=== PATIENT | female | born 1955 | race Caucasian/White ===

== ENCOUNTER → 2019-02-05 | Day surgery (SDC) | payer MEDICARE ==
[2019-01-30 14:20] LABS: BASOPHILS % 0.5 % (0.0-1.0); EOSINOPHILS # (AUTO) 0.2 (0.0-0.4); EOSINOPHILS % 2.1 % (0.0-6.0); HEMATOCRIT 35.5 % (34.2-44.1); HEMOGLOBIN 10.9 g/dL (12.0-16.0); LYMPHOCYTES # (AUTO) 2.4 (1.0-3.2); MEAN CORPUSCULAR HGB CONC 30.7 g/dL (31-35); MEAN CORPUSCULAR VOLUME 84.5 fL (81-99); MONOCYTES # (AUTO) 0.7 (0.2-0.8); MONOCYTES % 7.6 % (4.4-11.3); NEUTROPHILS # (AUTO) 5.3 (2.1-6.9); NEUTROPHILS % 61.2 % (38.7-80.0); PLATELET COUNT 283 x10e3/uL (140-360); RED CELL DISTRIBUTION WIDTH 14.5 % (11.7-14.4)
[~2019-02-05] MED LIST: AMIODARONE HCL200 MG PO; APPLE CIDER VI600 MG PO; ASPIR 8181 MG PO; ATORVASTATIN CA20 MG PO; BUPROPION HCL100 MG PO; BUSPIRONE HCL15 MG PO; CALCIUM PO; CITALOPRAM HBR20 MG PO; CLOPIDOGREL75 MG PO; ELIQUIS PO; FUROSEMIDE40 MG PO; HUMALOG100 UNIT/1 SQ; LEVEMIR100 UNIT/1 SQ; LIDOCAINE HCL 2% LOCAL INJ 5 ML SDV VIAL INJ ONE; LOSARTAN POTASS25 MG PO; METFORMIN HCL500 MG PO; METOPROLOL SUCC25 MG PO; MIDAZOLAM HCL 2 MG/2 ML VIAL ONE; OMEPRAZOLE40 MG PO; ONDANSETRON PO; POTASSIUM PO; PROPOFOL IV EMULSION 10 MG/ML 50 ML VIAL ONE; RANITIDINE HCL150 M1 PEG; ROPINIROLE HCL1 MG PO; TIZANIDINE HCL4 M1 PO; TRAZODONE HCL50 MG PO; TYLENOL ARTHRITIS PO; TYLENOL PM PO; ULTRAM50 MG PO; VITAMIN C500 M1; VITAMIN D35000 UNIT PO
--- OUTSIDE RECORDS SUMMARY | 2019-02-05 06:03 | XMS REPORT | Summary of Care ---
Author Author [facility] Organization [facility] Address Unknown Phone Unavailable Encounter SARY Kim(LEROY) [id number] Date(s): 12/07/14 - 12/12/14 [facility] [address] [place] [address]- Discharge Disposition: Home Attending Physician: Morgan Cunningham MD Admitting Physician: Morgan Cunningham MD Vital Signs 1 2 3 Most recent to oldest [Reference Range]: 160.02 cm (12/07/14 12:20 PM) 162.56 cm (12/07/14 12:19 PM) 161.29 cm (12/07/14 8:53 AM) Height 1 2 3 Most recent to oldest [Reference Range]: 115.009 kg (12/12/14 5:00 AM) 118.1 kg (12/11/14 12:00 AM) 121 kg (12/10/14 2:44 AM) Current Weight 1 2 3 Most recent to oldest [Reference Range]: 97.6 DegF (12/12/14 7:49 AM) 98.1 DegF (12/12/14 4:00 AM) 98.5 DegF (12/12/14 12:00 AM) Temperature Oral [96.4-99.1 DegF] 1 2 3 Most recent to oldest [Reference Range]: 101/71 mmHg (12/12/14 7:49 AM) 99/63 mmHg (12/12/14 4:00 AM) 113/77 mmHg (12/12/14 12:00 AM) Blood Pressure [90-140/60-90 mmHg] 1 2 3 Most recent to oldest [Reference Range]: 20 BRMIN (12/12/14 7:49 AM) 18 BRMIN (12/12/14 4:00 AM) 18 BRMIN (12/12/14 12:00 AM) Respiratory Rate [14-20 BRMIN] 1 2 3 Most recent to oldest [Reference Range]: 86 bpm (12/12/14 7:49 AM) 68 bpm (12/12/14 4:00 AM) 57 bpm *LOW* (12/12/14 12:00 AM) Peripheral Pulse Rate [60-100 bpm] 1 2 3 Most recent to oldest [Reference Range]: 112.3 kg (12/07/14 12:20 PM) 114.8 kg (12/07/14 12:19 PM) 120.455 kg (12/07/14 8:53 AM) Weight 1 2 3 Most recent to oldest [Reference Range]: 43.86 m2 (12/07/14 12:20 PM) 43.44 m2 (12/07/14 12:19 PM) 46.3 m2 (12/07/14 8:53 AM) Body Mass Index Problem List Condition Effective Dates Status Health Status Informant Anxiety(Confirmed) Active Depression(Confirmed Resolved ) Diabetes mellitus Resolved type 2 in obese(Confirmed) Heart Resolved attack(Confirmed) Hepatitis Active C(Confirmed) Hypercholesteremia(C Active onfirmed) Hypertension(Confirm Active ed) Allergies, Adverse Reactions, Alerts Substance Reaction Severity Status Food Lactose Intolerance Active (Restricts Milk/Milk Products) Zestril Active Medications acetaminophen 650 mg, 2 tab, Route: PO, Drug form: TAB, Q4H, Dosing Weight 120.455, kg, PRN Pa in 1-3/Temp > 100.4 F, Start date: 12/07/14 12:16:00, Duration: 30 day, Stop date: 01/06/15 12:15:00 Notes: Do not exceed 4 gm/day. (Same as: Tylenol) Start Date: 12/07/14 Stop Date: 12/12/14 Status: Discontinued AMIODarone 200 mg, 1 tab, Route: PO, Drug form: TAB, TID-Meals, Dosing Weight 112.3, kg, St art date: 12/10/14 8:00:00, Duration: 30 day, Stop date: 01/08/15 17:00:00 Notes: (Same as: Cordarone) Start Date: 12/10/14 Stop Date: 12/12/14 Status: Discontinued AMIODarone 200 mg, 1 tab, Route: PO, Drug form: TAB, BID-Meals, Dosing Weight 112.3, kg, St art date: 12/12/14 8:00:00, Duration: 30 day, Stop date: 01/10/15 17:00:00 Notes: (Same as: Cordarone) Start Date: 12/12/14 Stop Date: 12/12/14 Status: Discontinued AMIODarone 200 mg, 1 tab, Route: PO, Drug form: TAB, BID, Dosing Weight 112.3, kg, Start da te: 12/09/14 17:00:00, Duration: 30 day, Stop date: 01/08/15 9:00:00 Notes: (Same as: Cordarone) Start Date: 12/09/14 Stop Date: 12/10/14 Status: Discontinued AMIODarone 200 mg oral tablet 200 mg=1 tab, PO, BID-Meals, # 60 tab, 0 Refill(s) Start Date: 12/12/14 Status: Ordered apixaban 5 mg oral tablet 5 mg=1 tab, PO, Q12H, # 60 tab, 0 Refill(s) Start Date: 12/12/14 Status: Ordered aspirin 81 mg, 1 tab, Route: PO, Drug form: ECTAB, Daily, Dosing Weight 112.3, kg, Start date: 12/08/14 9:00:00, Duration: 30 day, Stop date: 01/06/15 9:00:00 Notes: Do not crush or chew.(Same As: Ecotrin) Start Date: 12/08/14 Stop Date: 12/09/14 Status: Discontinued aspirin 325 mg, 1 tab, Route: PO, Drug form: TAB, ONCE, Dosing Weight 120.455, kg, Prior ity: STAT, Start date: 12/07/14 8:59:00, Stop date: 12/07/14 8:59:00 Notes: Take with food. Start Date: 12/07/14 Stop Date: 12/07/14 Status: Completed aspirin 81 mg tablet, enteric coated 81 mg=1 tab, PO, Daily, # 100 tab, 0 Refill(s) Start Date: 12/12/14 Status: Ordered aspirin 81 mg tablet, enteric coated 81 mg, 1 tab, Route: PO, Drug form: ECTAB, Daily, Dosing Weight 112.3, kg, Start date: 12/10/14 9:00:00, Duration: 30 day, Stop date: 01/08/15 9:00:00 Notes: Do not crush or chew.(Same As: Ecotrin) Start Date: 12/10/14 Stop Date: 12/12/14 Status: Discontinued cloNIDine 0.1 mg oral tablet 0.1 mg, 1 tab, Route: PO, Drug form: TAB, BID, Dosing Weight 112.3, kg, Start da te: 12/07/14 17:00:00, Duration: 30 day, Stop date: 01/06/15 9:00:00 Notes: (Same As: Catapres) Start Date: 12/07/14 Stop Date: 12/12/14 Status: Discontinued cloNIDine 0.1 mg oral tablet 0.1 mg=1 tab, PO, BID, # 90 tab, 3 Refill(s) Start Date: 12/07/14 Status: Ordered clopidogrel 600 mg, 2 tab, Route: PO, Drug form: TAB, ONCE, Dosing Weight 112.3, kg, Priorit y: NOW, Start date: 12/09/14 15:15:00, Stop date: 12/09/14 15:15:00 Notes: ( Same as: Plavix) Start Date: 12/09/14 Stop Date: 12/09/14 Status: Completed clopidogrel 75 mg, 1 tab, Route: PO, Drug form: TAB, Daily, Dosing Weight 112.3, kg, Start d ate: 12/10/14 9:00:00, Duration: 30 day, Stop date: 01/07/15 21:00:00 Notes: (Same As: Plavix) Start Date: 12/10/14 Stop Date: 12/12/14 Status: Discontinued clopidogrel 75 mg oral tablet 75 mg=1 tab, PO, Daily, # 30 tab, 0 Refill(s) Start Date: 12/12/14 Status: Ordered Coreg 12.5 mg, 1 tab, Route: PO, Drug form: TAB, BID, Dosing Weight 112.3, kg, Start d ate: 12/07/14 17:00:00, Duration: 30 day, Stop date: 01/06/15 9:00:00 Notes: Give with food. (Same As: Coreg) Start Date: 12/07/14 Stop Date: 12/12/14 Status: Discontinued Coreg 12.5 mg oral tablet 12.5 mg=1 tab, PO, BID, # 60 tab, 0 Refill(s) Start Date: 12/07/14 Status: Ordered Dextrose 50% Syringe 12.5 gm, 25 mL, Route: IVP, Drug Form: INJ, Dosing Weight 112.3, kg, PRN, PRN Bl ood Glucose Results, Start date: 12/07/14 16:18:00, Duration: 30 day, Stop date: 01/06/15 16:17:00 Start Date: 12/07/14 Stop Date: 12/12/14 Status: Discontinued Dextrose 50% Syringe 25 gm, 50 mL, Route: IVP, Drug Form: INJ, Dosing Weight 112.3, kg, PRN, PRN Bloo d Glucose Results, Start date: 12/07/14 16:18:00, Duration: 30 day, Stop date: 0 01/06/15 16:17:00 Start Date: 12/07/14 Stop Date: 12/12/14 Status: Discontinued digoxin 0.25 mg, 1 mL, Route: IVP, Drug form: INJ, Q6H, Dosing Weight 112.3, kg, start t his load 6 hours after initial bolus of 500mcg is given, Start date: 12/11/14 14 :00:00, Duration: 2 doses or times, Stop date: 12/11/14 20:00:00 Notes: (Same as: Lanoxin) Start Date: 12/11/14 Stop Date: 12/11/14 Status: Completed digoxin 500 microgram, 2 mL, Route: IVP, Drug form: INJ, ONCE, Dosing Weight 112.3, kg, Start date: 12/11/14 7:47:00, Stop date: 12/11/14 7:47:00 Notes: (Same as: Lanoxin) Start Date: 12/11/14 Stop Date: 12/11/14 Status: Completed docusate 100 mg, 1 cap, Route: PO, Drug form: CAP, Daily, Dosing Weight 112.3, kg, Start date: 12/10/14 11:56:00, Duration: 30 day, Stop date: 01/09/15 9:00:00 Notes: (Same as: Colace) (Do Not Crush) Start Date: 12/10/14 Stop Date: 12/12/14 Status: Discontinued Eliquis 5 mg, 1 tab, Route: PO, Drug form: TAB, Q12H, Dosing Weight 112.3, kg, Start loly e: 12/10/14 9:00:00, Duration: 30 day, Stop date: 01/08/15 21:00:00 Notes: Same as: Eliquis Start Date: 12/10/14 Stop Date: 12/12/14 Status: Discontinued enoxaparin 40 mg, 0.4 mL, Route: SUB-Q, Drug form: INJ, Q12H, Dosing Weight 112.3, kg, Cons ider for obese patients, Start date: 12/07/14 21:00:00, Duration: 30 day, Stop d ate: 01/06/15 9:00:00 Notes: (Same as: Lovenox) Start Date: 12/07/14 Stop Date: 12/09/14 Status: Discontinued estradiol-norethindrone 1 mg-0.5 mg oral tablet 1 tab, PO, Daily, # 28 tab, 0 Refill(s) Start Date: 12/07/14 Status: Ordered ferrous sulfate 325 mg, 1 tab, Route: PO, Drug form: TAB, TID-Meals, Dosing Weight 112.3, kg, St art date: 12/07/14 17:00:00, Duration: 30 day, Stop date: 01/06/15 12:00:00 Notes: Give with food.iron elemental [id number] as ferrous sulfateDose=___mg meghan mental iron Start Date: 12/07/14 Stop Date: 12/12/14 Status: Discontinued ferrous sulfate 325 mg oral enteric coated tablet 325 mg=1 tab, PO, TID, # 30 tab, 0 Refill(s) Start Date: 12/07/14 Status: Ordered folic acid 1 mg, 1 tab, Route: PO, Drug form: TAB, Daily, Dosing Weight 112.3, kg, Start da te: 12/08/14 9:00:00, Duration: 30 day, Stop date: 01/06/15 9:00:00 Notes: (Same as: Folvite) Start Date: 12/08/14 Stop Date: 12/12/14 Status: Discontinued folic acid 1 mg oral tablet 1 mg=1 tab, PO, Daily, # 30 tab, 0 Refill(s) Start Date: 12/07/14 Status: Ordered furosemide 60 mg, 6 mL, Route: IV, Drug form: INJ, ONCE, Dosing Weight 120.455, kg, Priorit y: STAT, Start date: 12/07/14 9:22:00, Stop date: 12/07/14 9:22:00 Notes: (Same as: Lasix) MEDICATION WASTE Product Size: 40 mgProduct Was cami: ___ mg Start Date: 12/07/14 Stop Date: 12/07/14 Status: Completed glucagon 1 mg, Route: IM, Drug form: PDR/INJ, PRN, Dosing Weight 112.3, kg, PRN Blood Glu cose Results, Start date: 12/07/14 16:18:00, Duration: 30 day, Stop date: 16:17:00 Start Date: 12/07/14 Stop Date: 12/12/14 Status: Discontinued Heparin - one time bolus for ACS 4,000 unit, 4 mL, Route: IV, Drug form: INJ, ONCE, Dosing Weight 112.3, kg, Star t date: 12/09/14 8:32:00, Stop date: 12/09/14 8:32:00 Start Date: 12/09/14 Stop Date: 12/09/14 Status: Completed heparin additive 25,000 unit [14 unit/kg/hr] + Premix Diluent Dextrose 5% 500 mL 500 mL, Rate: 22.23 ml/hr, Infuse over: 22.5 hr, Route: IV, Dosing Weight 79.4 k g, Total Volume: 500 mL, Start date: 12/09/14 7:50:00, Duration: 30 day, Stop da te: 01/08/15 7:49:00 Start Date: 12/09/14 Stop Date: 12/09/14 Status: Discontinued insulin aspart 3 unit, 0.03 mL, Route: SUB-Q, Drug form: SOLN, TID-Before Meals, Dosing Weight 112.3, kg, PRN Blood Glucose Results, Start date: 12/07/14 16:18:00, Duration: 3 0 day, Stop date: 01/06/15 16:17:00 Notes: Roll in palms of hands gently; Do not shake vigorously. (Same as: NovoLO G)"single patient use only" Stable for 28 days at room temperature.Expires in _ ____ days from Date Start Date: 12/07/14 Stop Date: 12/12/14 Status: Discontinued insulin aspart 4 unit, 0.04 mL, Route: SUB-Q, Drug form: SOLN, TID-Before Meals, Dosing Weight 112.3, kg, PRN Blood Glucose Results, Start date: 12/07/14 16:18:00, Duration: 3 0 day, Stop date: 01/06/15 16:17:00 Notes: Roll in palms of hands gently; Do not shake vigorously. (Same as: NovoLO G)"single patient use only" Stable for 28 days at room temperature.Expires in _ ____ days from Date Start Date: 12/07/14 Stop Date: 12/12/14 Status: Discontinued insulin aspart 5 unit, 0.05 mL, Route: SUB-Q, Drug form: SOLN, TID-Before Meals, Dosing Weight 112.3, kg, PRN Blood Glucose Results, Start date: 12/07/14 16:18:00, Duration: 3 0 day, Stop date: 01/06/15 16:17:00 Notes: Roll in palms of hands gently; Do not shake vigorously. (Same as: NovoLO G)"single patient use only" Stable for 28 days at room temperature.Expires in _ ____ days from Date Start Date: 12/07/14 Stop Date: 12/12/14 Status: Discontinued insulin aspart 1 unit, 0.01 mL, Route: SUB-Q, Drug form: SOLN, TID-Before Meals, Dosing Weight 112.3, kg, PRN Blood Glucose Results, Start date: 12/07/14 16:18:00, Duration: 3 0 day, Stop date: 01/06/15 16:17:00 Notes: Roll in palms of hands gently; Do not shake vigorously. (Same as: NovoLO G)"single patient use only" Stable for 28 days at room temperature.Expires in _ ____ days from Date Start Date: 12/07/14 Stop Date: 12/12/14 Status: Discontinued insulin aspart 2 unit, 0.02 mL, Route: SUB-Q, Drug form: SOLN, TID-Before Meals, Dosing Weight 112.3, kg, PRN Blood Glucose Results, Start date: 12/07/14 16:18:00, Duration: 3 0 day, Stop date: 01/06/15 16:17:00 Notes: Roll in palms of hands gently; Do not shake vigorously. (Same as: NovoLO G)"single patient use only" Stable for 28 days at room temperature.Expires in _ ____ days from Date Start Date: 12/07/14 Stop Date: 12/12/14 Status: Discontinued insulin aspart 5 unit, 0.05 mL, Route: SUB-Q, Drug form: SOLN, Before Lunch, Dosing Weight 112. 3, kg, Start date: 12/11/14 7:50:00, Duration: 30 day, Stop date: 01/09/15 11:30 :00 Notes: Roll in palms of hands gently; Do not shake vigorously. (Same as: NovoLO G)"single patient use only" Stable for 28 days at room temperature.Expires in _ ____ days from Date Start Date: 12/11/14 Stop Date: 12/12/14 Status: Discontinued insulin aspart 5 unit, 0.05 mL, Route: SUB-Q, Drug form: SOLN, Before Dinner, Dosing Weight 112 .3, kg, Start date: 12/10/14 16:30:00, Duration: 30 day, Stop date: 01/08/15 16: 30:00 Notes: Roll in palms of hands gently; Do not shake vigorously. (Same as: NovoLO G)"single patient use only" Stable for 28 days at room temperature.Expires in _ ____ days from Date Start Date: 12/10/14 Stop Date: 12/12/14 Status: Discontinued insulin aspart 3 unit, 0.03 mL, Route: SUB-Q, Drug form: SOLN, Before Lunch, Dosing Weight 112. 3, kg, Start date: 12/10/14 11:30:00, Duration: 30 day, Stop date: 01/08/15 11:3 0:00 Notes: Roll in palms of hands gently; Do not shake vigorously. (Same as: NovoLO G)"single patient use only" Stable for 28 days at room temperature.Expires in _ ____ days from Date Start Date: 12/10/14 Stop Date: 12/11/14 Status: Discontinued irbesartan 300 mg, 2 tab, Route: PO, Drug form: TAB, Daily, Dosing Weight 112.3, kg, Start date: 12/08/14 9:00:00, Duration: 30 day, Stop date: 01/06/15 9:00:00 Notes: (Same as:Avapro) Start Date: 12/08/14 Stop Date: 12/12/14 Status: Discontinued irbesartan 300 mg oral tablet 300 mg=1 tab, PO, Daily, # 30 tab, 0 Refill(s) Start Date: 12/07/14 Status: Ordered isosorbide mononitrate 60 mg, 1 tab, Route: PO, Drug form: ERTAB, QAM, Dosing Weight 112.3, kg, Start d ate: 12/08/14 9:00:00, Duration: 30 day, Stop date: 01/06/15 9:00:00 Notes: (Same as:Imdur)"Do Not Crush" Take on empty stomach/ full glass of water . Do not crush Start Date: 12/08/14 Stop Date: 12/10/14 Status: Discontinued isosorbide mononitrate 60 mg oral tablet, extended release 60 mg=1 tab, PO, QAM, # 30 tab, 0 Refill(s) Start Date: 12/07/14 Status: Ordered Lasix 40 mg, 4 mL, Route: IVP, Drug form: INJ, BID, Dosing Weight 112.3, kg, Start loly e: 12/07/14 17:00:00, Duration: 30 day, Stop date: 01/06/15 9:00:00 Notes: (Same as: Lasix) MEDICATION WASTE Product Size: 40 mgProduct Was cami: ___ mg Start Date: 12/07/14 Stop Date: 12/12/14 Status: Discontinued Lasix 40 mg oral tablet 40 mg, 1 tab, Route: PO, Drug form: TAB, Daily, Dosing Weight 112.3, kg, Start d ate: 12/12/14 9:00:00, Duration: 30 day, Stop date: 01/10/15 9:00:00 Notes: (Same as: Lasix) May cause GI upset. Give with food or milk. Start Date: 12/12/14 Stop Date: 12/12/14 Status: Discontinued Lasix 40 mg oral tablet 40 mg=1 tab, PO, Daily, # 30 tab, 0 Refill(s) Start Date: 12/12/14 Status: Ordered Levemir 10 unit, 0.1 mL, Route: SUB-Q, Drug form: INJ, BID, Dosing Weight 112.3, kg, Sta rt date: 12/07/14 17:00:00, Duration: 30 day, Stop date: 01/06/15 9:00:00 Notes: Same as LevemirDo not hold insulin without contacting prescriber "single patient use only" Start Date: 12/07/14 Stop Date: 12/10/14 Status: Discontinued Levemir 14 unit, 0.14 mL, Route: SUB-Q, Drug form: INJ, BID, Dosing Weight 112.3, kg, St art date: 12/11/14 9:00:00, Duration: 30 day, Stop date: 01/09/15 17:00:00 Notes: Same as LevemirDo not hold insulin without contacting prescriber "single patient use only" Start Date: 12/11/14 Stop Date: 12/12/14 Status: Discontinued Levemir 12 unit, 0.12 mL, Route: SUB-Q, Drug form: INJ, BID, Dosing Weight 112.3, kg, St art date: 12/10/14 17:00:00, Duration: 30 day, Stop date: 01/09/15 9:00:00 Notes: Same as LevemirDo not hold insulin without contacting prescriber "single patient use only" Start Date: 12/10/14 Stop Date: 12/11/14 Status: Discontinued Levemir FlexPen 100 units/mL subcutaneous solution 26 unit, SUB-Q, BID, # 1 pen(s), 3 Refill(s) Start Date: 12/07/14 Status: Ordered magnesium sulfate 1 gm, 100 mL, Route: IVPB, Drug form: INJ, ONCE, Dosing Weight 112.3, kg, Start date: 12/08/14 10:45:00, Stop date: 12/08/14 10:45:00 Start Date: 12/08/14 Stop Date: 12/08/14 Status: Completed metFORMIN 1000 mg oral tablet 1,000 mg=1 tab, PO, QAM, # 30 tab, 0 Refill(s) Start Date: 12/07/14 Status: Ordered metFORMIN 1000 mg oral tablet 1,500 mg=1.5 tab, PO, Bedtime, # 30 tab, 0 Refill(s) Start Date: 12/07/14 Status: Ordered MiraLax 17 gm, 1 pkt, Route: PO, Drug form: PWDR, Daily, Dosing Weight 112.3, kg, Start date: 12/10/14 11:56:00, Duration: 30 day, Stop date: 01/09/15 9:00:00 Notes: Dissolve in 8 oz of water or juice.(Same as: Miralax) Start Date: 12/10/14 Stop Date: 12/12/14 Status: Discontinued morphine Sulfate 2 mg, 1 mL, Route: IVP, Drug form: INJ, ONCE, Dosing Weight 112.3, kg, Start loly e: 12/09/14 7:17:00, Stop date: 12/09/14 7:17:00 Notes: (Same as:MORPhine Sulfate) Start Date: 12/09/14 Stop Date: 12/09/14 Status: Completed nitroglycerin 2% ointment 0.5 inch, Route: TOP, Drug Form: OINT, Dosing Weight 120.455, kg, ONCE, STAT, St art date: 12/07/14 10:30:00, Stop date: 12/07/14 10:30:00 Notes: 1 gram is approximately 1 inch of nitroglycerin ointment (20 mg NTG pe r gram) (Same as:Nitro-Bid) Start Date: 12/07/14 Stop Date: 12/07/14 Status: Completed nitroglycerin SL Tab 0.4 mg, Route: SL, Drug form: TAB, Q5Min, Dosing Weight 112.3, kg, PRN Chest Saleem n, Start date: 12/09/14 15:15:00, Duration: 3 doses or times, Stop date: Limited # of times Start Date: 12/09/14 Stop Date: 12/09/14 Status: Discontinued Nitrostat 0.4 mg sublingual tablet 0.4 mg=1 tab, SL, Q5Min, PRN Chest Pain, # 100 tab, 0 Refill(s) Start Date: 12/07/14 Status: Ordered Nitrostat 0.4 mg sublingual tablet 0.4 mg, 1 tab, Route: SL, Drug form: TAB, Q5Min, Dosing Weight 112.3, kg, PRN as needed for chest pain, Start date: 12/07/14 16:12:00, Duration: 30 day, Stop da te: 01/06/15 16:11:00 Notes: (Same as:Nitroquick, Nitrostat)"Do Not Crush" Sublingual tablet Start Date: 12/07/14 Stop Date: 12/12/14 Status: Discontinued [place] 10/325 oral tablet 1 tab, Route: PO, Drug Form: TAB, Dosing Weight 112.3, kg, Q4H, PRN Pain Score 4 -6, Start date: 12/07/14 16:46:00, Duration: 30 day, Stop date: 01/06/15 16:45:0 0 Notes: Do not exceed 4gm/day of acetaminophen. (Same as: [place] 325/10) Start Date: 12/07/14 Stop Date: 12/12/14 Status: Discontinued [place] 5/325 oral tablet 1 tab, PO, TID, PRN Pain, # 60 tab, 0 Refill(s) Start Date: 12/07/14 Stop Date: 12/22/14 Status: Ordered ondansetron 4 mg, 2 mL, Route: IVP, Drug form: INJ, Q6H, Dosing Weight 120.455, kg, PRN Naus ea & Vomiting, Start date: 12/07/14 12:16:00, Duration: 30 day, Stop date: 01/06/15 12:15:00 Notes: (Same as: Zofran) MEDICATION WASTE Product Size: 4 mgProduct Was cami: ___ mg Start Date: 12/07/14 Stop Date: 12/07/14 Status: Discontinued Plavix 75 mg, Route: PO, Drug form: TAB, Daily, Dosing Weight 112.3, kg, Start date: 9:00:00, Duration: 30 day, Stop date: 01/08/15 9:00:00 Start Date: 12/10/14 Stop Date: 12/09/14 Status: Canceled pravastatin 80 mg, 4 tab, Route: PO, Drug form: TAB, Bedtime, Dosing Weight 112.3, kg, Start date: 12/07/14 21:00:00, Duration: 30 day, Stop date: 01/05/15 21:00:00 Notes: (Same as: Pravachol) Start Date: 12/07/14 Stop Date: 12/12/14 Status: Discontinued pravastatin 80 mg oral tablet 80 mg=1 tab, PO, Bedtime, # 30 tab, 0 Refill(s) Start Date: 12/07/14 Status: Ordered Requip 1 mg, 1 tab, Route: PO, Drug form: TAB, Bedtime, Dosing Weight 112.3, kg, Start date: 12/07/14 17:00:00, Stop date: 01/05/15 21:00:00 Notes: (Same as: Requip) Start Date: 12/07/14 Stop Date: 12/12/14 Status: Discontinued Requip 1 mg oral tablet 1 mg=1 tab, PO, BID, # 30 tab, 1 Refill(s) Start Date: 12/07/14 Stop Date: 01/06/15 Status: Ordered Saline Flush 0.9% 10 mL, Route: IVP, Drug Form: INJ, Dosing Weight 120.455, kg, PRN, PRN Line Flus h, Start date: 12/07/14 8:59:00, Duration: 30 day, Stop date: 01/06/15 8:58:00 Notes: preservative free. Start Date: 12/07/14 Stop Date: 12/12/14 Status: Discontinued Sodium Chloride 0.9% IV 500 mL 500 mL, Rate: 50 ml/hr, Infuse over: 10 hr, Route: IV, Dosing Weight 112.3 kg, T otal Volume: 500, Start date: 12/09/14 15:15:00, Duration: 1 doses or times, Sto p date: 12/10/14 1:14:00 Start Date: 12/09/14 Stop Date: 12/10/14 Status: Completed Soma 350 mg oral tablet 350 mg=1 tab, PO, Bedtime, # 21 tab, 0 Refill(s) Start Date: 12/07/14 Stop Date: 12/14/14 Status: Ordered Tradjenta 5 mg oral tablet 5 mg=1 tab, PO, Daily, # 90 tab, 1 Refill(s) Start Date: 12/07/14 Status: Ordered trazodone 300 mg, 2 tab, Route: PO, Drug form: TAB, Bedtime, Dosing Weight 112.3, kg, Star t date: 12/07/14 21:00:00, Duration: 30 day, Stop date: 01/05/15 21:00:00 Notes: (Same As: Desyrel) Start Date: 12/07/14 Stop Date: 12/12/14 Status: Discontinued trazodone 150 mg oral tablet 300 mg=2 tab, PO, Bedtime, # 90 tab, 0 Refill(s) Start Date: 12/07/14 Status: Ordered Tylenol 650 mg, 2 tab, Route: PO, Drug form: TAB, Q6H, Dosing Weight 112.3, kg, PRN For Temp > 100.4 F, Start date: 12/07/14 16:45:00, Duration: 30 day, Stop date: 01/06/15 16:44:00 Notes: Do not exceed 4 gm/day. (Same as: Tylenol) Start Date: 12/07/14 Stop Date: 12/12/14 Status: Discontinued verapamil 360 mg, 2 tab, Route: PO, Drug form: ERTAB, QAM, Dosing Weight 112.3, kg, Start date: 12/08/14 9:00:00, Duration: 30 day, Stop date: 01/06/15 9:00:00 Notes: Do not crush or chew.(Same As: Calan SR, Isoptin SR) "Avoid grapefruit a nd grapefruit juice" Start Date: 12/08/14 Stop Date: 12/09/14 Status: Discontinued verapamil 180 mg oral tablet, extended release 360 mg=2 tab, PO, QAM, # 30 tab, 0 Refill(s) Start Date: 12/07/14 Status: Ordered Victoza 18 mg/3 mL subcutaneous injection 1.2 mg, SUB-Q, Daily, # 3 ea, 3 Refill(s) Start Date: 12/07/14 Status: Ordered Wellbutrin XL 300 mg, 2 tab, Route: PO, Drug form: ERTAB, Daily, Dosing Weight 112.3, kg, Star t date: 12/08/14 9:00:00, Duration: 30 day, Stop date: 01/06/15 9:00:00 Notes: (Same as: Wellbutrin XL)"Do Not Crush" Start Date: 12/08/14 Stop Date: 12/12/14 Status: Discontinued Wellbutrin XL 300 mg/24 hours oral tablet, extended release 300 mg=1 tab, PO, Daily, # 30 tab, 0 Refill(s) Start Date: 12/07/14 Status: Ordered Xanax 0.25 mg oral tablet 0.25 mg, 1 tab, Route: PO, Drug form: TAB, Bedtime, Dosing Weight 112.3, kg, PRN as needed for anxiety, Start date: 12/07/14 16:10:00, Duration: 30 day, Stop da te: 01/06/15 16:09:00 Notes: With food or milk(Same as: Xanax) Start Date: 12/07/14 Stop Date: 12/12/14 Status: Discontinued Xanax 0.25 mg oral tablet 0.25 mg=1 tab, PO, Bedtime, PRN Anxiety Start Date: 12/07/14 Status: Ordered Zanaflex 4 mg, 1 tab, Route: PO, Drug form: TAB, Bedtime, Dosing Weight 112.3, kg, Start date: 12/07/14 21:00:00, Duration: 30 day, Stop date: 01/05/15 21:00:00 Notes: (Same As: Zanaflex) Start Date: 12/07/14 Stop Date: 12/12/14 Status: Discontinued Zanaflex 4 mg oral tablet 4 mg=1 tab, PO, Bedtime, # 540 tab, 0 Refill(s) Start Date: 12/07/14 Status: Ordered Zofran 4 mg, 2 mL, Route: IV, Drug form: INJ, Q8H, Dosing Weight 112.3, kg, PRN Nausea, Start date: 12/07/14 16:45:00, Duration: 30 day, Stop date: 01/06/15 16:44:00 Notes: (Same as: Zofran) MEDICATION WASTE Product Size: 4 mgProduct Was cami: ___ mg Start Date: 12/07/14 Stop Date: 12/12/14 Status: Discontinued Results ELECTROLYTES 1 2 3 Most recent to oldest [Reference Range]: 136 mEq/L (12/12/14 6:00 AM) 139 mEq/L (12/11/14 7:17 AM) 140 mEq/L (12/10/14 6:15 AM) Sodium Lvl [135-145 mEq/L] 4.0 mEq/L (12/12/14 6:00 AM) 4.4 mEq/L (12/11/14 7:17 AM) 4.9 mEq/L (12/10/14 6:15 AM) Potassium Lvl [3.5-5.1 mEq/L] 101 mEq/L (12/12/14 6:00 AM) 102 mEq/L (12/11/14 7:17 AM) 105 mEq/L (12/10/14 6:15 AM) Chloride Lvl [95-109 mEq/L] 24 mEq/L (12/12/14 6:00 AM) 29 mEq/L (12/11/14 7:17 AM) 28 mEq/L (12/10/14 6:15 AM) CO2 [24-32 mEq/L] 15.0 mEq/L (12/12/14 6:00 AM) 12.4 mEq/L (12/11/14 7:17 AM) 11.9 mEq/L (12/10/14 6:15 AM) AGAP [10.0-20.0 mEq/L] CHEM PANEL 1 2 3 Most recent to oldest [Reference Range]: 0.9 mg/dL (12/12/14 6:00 AM) 1.0 mg/dL (12/11/14 7:17 AM) 1.1 mg/dL (12/10/14 6:15 AM) Creatinine Lvl [0.5-1.4 mg/dL] 71 mL/min/1.73m2 1 *NA* (12/12/14 6:00 AM) 62 mL/min/1.73m2 2 *NA* (12/11/14 7:17 AM) 55 mL/min/1.73m2 3 *NA* (12/10/14 6:15 AM) eGFR 23 mg/dL *HI* (12/12/14 6:00 AM) 18 mg/dL (12/11/14 7:17 AM) 23 mg/dL *HI* (12/10/14 6:15 AM) BUN [7-22 mg/dL] 16 (12/07/14 9:04 AM) B/C Ratio [6-25] 159 mg/dL *HI* (12/12/14 6:00 AM) 175 mg/dL *HI* (12/11/14 7:17 AM) 160 mg/dL *HI* (12/10/14 6:15 AM) Glucose Lvl [70-99 mg/dL] 6.8 g/dL (12/07/14 9:04 AM) Total Protein [6.4-8.4 g/dL] 3.6 g/dL (12/07/14 9:04 AM) Albumin Lvl [3.5-5.0 g/dL] 3.2 g/dL (12/07/14 9:04 AM) Globulin [2.0-4.0 g/dL] 1.1 (12/07/14 9:04 AM) A/G Ratio [0.7-1.6] 8.2 mg/dL *LOW* (12/12/14 6:00 AM) 8.1 mg/dL *LOW* (12/11/14 7:17 AM) 8.0 mg/dL *LOW* (12/10/14 6:15 AM) Calcium Lvl [8.5-10.5 mg/dL] 1.9 mg/dL (12/11/14 7:17 AM) 1.9 mg/dL (12/10/14 6:15 AM) 1.9 mg/dL (12/09/14 4:50 AM) Magnesium Lvl [1.8-2.4 mg/dL] 22 unit/L (12/07/14 9:04 AM) ALT [0-65 unit/L] 17 unit/L (12/07/14 9:04 AM) AST [0-37 unit/L] 55 unit/L (12/07/14 9:04 AM) Alk Phos [39-136 unit/L] 0.3 mg/dL (12/07/14 9:04 AM) Bili Total [0.2-1.3 mg/dL] 105 unit/L (12/07/14 9:04 AM) Lipase Lvl [73-393 unit/L] 1Result Comment: The eGFR is calculated using the CKD-EPI formula. In most young, healthy individuals the eGFR will be >90 mL/min/1.73m2. The eGFR declines with age. An eGFR of 60-89 may be normal in some populations, particularly the elderly, for whom the CKD-EPI formula has not been extensively validated. Use of the eGFR is not recommended in the following populations: Individuals with unstable creatinine concentrations, including patients and those with serious co-morbid conditions. Patients with extremes in muscle mass or diet. The data above are obtained from the National Kidney Disease Education Program ( NKDEP) which additionally recommends that when the eGFR is used in patients with extremes of body mass index for purposes of drug dosing, the eGFR should be mul tiplied by the estimated BMI. 2Result Comment: The eGFR is calculated using the CKD-EPI formula. In most young, healthy individuals the eGFR will be >90 mL/min/1.73m2. The eGFR declines with age. An eGFR of 60-89 may be normal in some populations, particularly the elderly, for whom the CKD-EPI formula has not been extensively validated. Use of the eGFR is not recommended in the following populations: Individuals with unstable creatinine concentrations, including patients and those with serious co-morbid conditions. Patients with extremes in muscle mass or diet. The data above are obtained from the National Kidney Disease Education Program ( NKDEP) which additionally recommends that when the eGFR is used in patients with extremes of body mass index for purposes of drug dosing, the eGFR should be mul tiplied by the estimated BMI. 3Result Comment: The eGFR is calculated using the CKD-EPI formula. In most young, healthy individuals the eGFR will be >90 mL/min/1.73m2. The eGFR declines with age. An eGFR of 60-89 may be normal in some populations, particularly the elderly, for whom the CKD-EPI formula has not been extensively validated. Use of the eGFR is not recommended in the following populations: Individuals with unstable creatinine concentrations, including patients and those with serious co-morbid conditions. Patients with extremes in muscle mass or diet. The data above are obtained from the National Kidney Disease Education Program ( NKDEP) which additionally recommends that when the eGFR is used in patients with extremes of body mass index for purposes of drug dosing, the eGFR should be mul tiplied by the estimated BMI. CARDIAC ENZYMES 1 2 3 Most recent to oldest [Reference Range]: 52 unit/L (12/09/14 7:22 PM) 60 unit/L (12/09/14 1:35 PM) 53 unit/L (12/09/14 7:31 AM) Total CK [12-191 unit/L] 0.6 ng/mL (12/09/14 7:22 PM) 1.2 ng/mL (12/09/14 1:35 PM) 1.1 ng/mL (12/09/14 7:31 AM) CK MB [0.5-3.6 ng/mL] 1.2 (12/09/14 7:22 PM) 2.0 (12/09/14 1:35 PM) 2.1 (12/09/14 7:31 AM) CK MB Index [0.0-2.5] <0.02 ng/mL (12/09/14 7:22 PM) <0.02 ng/mL (12/09/14 1:35 PM) <0.02 ng/mL (12/09/14 7:31 AM) Troponin-I [0.00-0.40 ng/mL] 147 pg/mL *HI* (12/09/14 7:31 AM) 329 pg/mL *HI* (12/07/14 9:04 AM) BNP [<=100 pg/mL] LIPIDS 1 2 3 Most recent to oldest [Reference Range]: 2.50 *LOW* (12/08/14 8:10 AM) CHD Risk [3.90-5.80] 130 mg/dL (12/08/14 8:10 AM) Chol [<=199 mg/dL] 133 mg/dL (12/08/14 8:10 AM) Trig [<=149 mg/dL] 52 mg/dL *LOW* (12/08/14 8:10 AM) HDL [>=61 mg/dL] 51 mg/dL (12/08/14 8:10 AM) LDL (Calculated) [<=99 mg/dL] 27 *NA* (12/08/14 8:10 AM) VLDL SPECIAL CHEMISTRY 1 2 3 Most recent to oldest [Reference Range]: 6.9 % *HI* (12/07/14 5:00 PM) Hgb A1C [<=5.6 %] HEMATOLOGY 1 2 3 Most recent to oldest [Reference Range]: 5.4 K/CMM (12/10/14 6:15 AM) 6.5 K/CMM (12/09/14 9:18 AM) 7.4 K/CMM (12/07/14 9:04 AM) WBC [3.7-10.4 K/CMM] 4.26 M/CMM (12/10/14 6:15 AM) 4.47 M/CMM (12/09/14 9:18 AM) 4.60 M/CMM (12/07/14 9:04 AM) RBC [4.20-5.40 M/CMM] 11.2 g/dL *LOW* (12/10/14 6:15 AM) 11.9 g/dL *LOW* (12/09/14 9:18 AM) 12.0 g/dL (12/07/14 9:04 AM) Hgb [12.0-16.0 g/dL] 34.7 % *LOW* (12/10/14 6:15 AM) 36.5 % (12/09/14 9:18 AM) 37.9 % (12/07/14 9:04 AM) Hct [36.0-48.0 %] 81.3 fL (12/10/14 6:15 AM) 81.7 fL (12/09/14 9:18 AM) 82.3 fL (12/07/14 9:04 AM) MCV [80.0-98.0 fL] 26.3 pg *LOW* (12/10/14 6:15 AM) 26.7 pg *LOW* (12/09/14 9:18 AM) 26.1 pg *LOW* (12/07/14 9:04 AM) MCH [27.0-31.0 pg] 32.3 g/dL (12/10/14:15 AM) 32.7 g/dL (12/09/14:18 AM) 31.7 g/dL *LOW* (12/07/14:04 AM) MCHC [32.0-36.0 g/dL] 14.1 % (12/10/14:15 AM) 13.9 % (12/09/14:18 AM) 14.4 % (12/07/14 9:04 AM) RDW [11.5-14.5 %] 215 K/CMM (12/10/14:15 AM) 238 K/CMM (12/09/1418 AM) 228 K/CMM (12/07/14 5:00 PM) Platelet [133-450 K/CMM] 9.0 fL (12/10/14:15 AM) 8.7 fL (12/09/14:18 AM) 9.2 fL (12/07/14:04 AM) MPV [7.4-10.4 fL] 62.3 % (12/10/14:15 AM) 59.9 % (12/09/1418 AM) 68.2 % (12/07/14:04 AM) Segs [45.0-75.0 %] 24.0 % (12/10/14:15 AM) 28.6 % (12/09/1418 AM) 21.9 % (12/07/14 9:04 AM) Lymphocytes [20.0-40.0 %] 10.6 % (12/10/14:15 AM) 9.4 % (12/09/14:18 AM) 7.7 % (12/07/14 9:04 AM) Monocytes [2.0-12.0 %] 2.5 % (12/10/14:15 AM) 1.7 % (12/09/14:18 AM) 1.8 % (12/07/14 9:04 AM) Eosinophils [0.0-4.0 %] 0.6 % (7/22/15 6:15 AM) 0.4 % (12/09/14 9:18 AM) 0.4 % (12/07/14 9:04 AM) Basophils [0.0-1.0 %] 3.4 K/CMM (12/10/14 6:15 AM) 3.9 K/CMM (12/09/14 9:18 AM) 5.1 K/CMM (12/07/14 9:04 AM) Segs-Bands # [1.5-8.1 K/CMM] 1.3 K/CMM (12/10/14 6:15 AM) 1.9 K/CMM (12/09/14 9:18 AM) 1.6 K/CMM (12/07/14 9:04 AM) Lymphocytes # [1.0-5.5 K/CMM] 0.6 K/CMM (12/10/14 6:15 AM) 0.6 K/CMM (12/09/14 9:18 AM) 0.6 K/CMM (12/07/14 9:04 AM) Monocytes # [0.0-0.8 K/CMM] 0.1 K/CMM (12/10/14 6:15 AM) 0.1 K/CMM (12/09/14 9:18 AM) 0.1 K/CMM (12/07/14 9:04 AM) Eosinophils # [0.0-0.5 K/CMM] 0.0 K/CMM (12/10/14 6:15 AM) 0.0 K/CMM (12/07/14 9:04 AM) Basophils # [0.0-0.2 K/CMM] 13.3 seconds (12/09/14 9:18 AM) 13.0 seconds (12/07/14 9:04 AM) PT [12.0-14.7 seconds] 1.01 (12/09/14 9:18 AM) 0.98 (12/07/14 9:04 AM) INR [0.85-1.17] 35.7 seconds (12/09/14 9:18 AM) 32.6 seconds (12/07/14 5:00 PM) 35.1 seconds (12/07/14 9:04 AM) PTT [22.9-35.8 seconds] Immunizations No data available for this section Procedures Procedure Date Related Diagnosis Body Site Gastric bypass Hiatus hernia repair Stent placement Tubal ligation Social History Social History Type Response Alcohol Never Smoking Status Never smoker; Exposure to Tobacco Smoke None; Cigarette Smoking Last 365 Days No; Reg Smoking Cessation Counseling No Assessment and Plan No data available for this section
--- OUTSIDE RECORDS SUMMARY | 2019-02-05 06:03 | XMS REPORT ---
Author Author Juan Villarreal eClinicalWorks Address Unknown Phone Unavailable Care Team Providers Care Chopper Operator Name Role Phone Juan Villarreal Unavailable Encounters Encounter Location Date medication interaction [facility] Jan 02, 2015 Re: interaction of currents meds w/Amiodorone [facility] Jan 02, 2015 Med refills [facility] Jan 05, 2015 Rx- Pen needles (Levemir Pen) [facility] [place] Jan 07, 2015 Test results [facility] Dec 26, 2014 Message [facility] Jan 05, 2015 Message [facility] Jan 07, 2015 Problems Problem Type Condition ICD-9 Code Onset Dates Condition Status Problem Benign hypertension 401.1 Active Problem Atrial fibrillation 427.31 Active Problem Coronary atherosclerosis of [place] vessel 414.01 Active Problem Anxiety disorder NOS 300.00 Active Problem Morbid obesity 278.01 Active Problem Chronic systolic heart failure 428.22 Active Problem Dyspnea 786.09 Active Medications Medication Code System Code Instructions Start Date End Date Status Dosage Stacy BELL 113975 5 mg orally 2 times a day Active 1 tab(s) Summary Purpose eClinicalWorks Submission
--- OUTSIDE RECORDS SUMMARY | 2019-02-05 06:03 | XMS REPORT ---
Author [facility] Address Unknown Phone Unavailable Care Team Providers Care It Quality Assurance Analyst Name Role Phone Unavailable Unavailable Problems This patient has no known problems. Allergies, Adverse Reactions, Alerts This patient has no known allergies or adverse reactions. Medications This patient has no known medications. Encounters Start Date/Time End Date/Time Encounter Type Admission Type Attending [facility] Care Department Encounter ID 2017-05-26 00:00:00 2017-05-26 00:00:00 Outpatient [facility] [id number] 2017-03-15 00:00:00 2017-03-15 00:00:00 Outpatient [facility] [id number] 2017-02-14 00:00:00 2017-02-14 00:00:00 Outpatient [facility] [id number] 2017-02-09 00:00:00 2017-02-09 00:00:00 Outpatient [facility] [id number] 2017-02-08 00:00:00 2017-02-08 00:00:00 Outpatient [facility] [id number] 2017-01-31 00:00:00 2017-01-31 00:00:00 Outpatient [facility] [id number] 2017-01-31 00:00:00 2017-01-31 00:00:00 Outpatient [facility] [id number] 2017-01-17 00:00:00 2017-01-17 00:00:00 Outpatient [facility] [id number] 2017-01-13 00:00:00 2017-01-13 00:00:00 Outpatient [facility] [id number] 2017-01-13 00:00:00 2017-01-13 00:00:00 Outpatient [facility] [id number] 2017-01-12 08:18:04 2017-01-12 08:18:04 Outpatient [facility] [id number] 2017-01-11 09:30:51 2017-01-11 09:30:51 Outpatient [facility] [id number] 2017-01-03 09:38:19 2017-01-03 09:38:19 Outpatient [facility] [id number] 2017-01-02 09:29:49 2017-01-02 09:29:49 Outpatient [facility] [id number] 2017-01-02 08:37:13 2017-01-02 08:37:13 Outpatient [facility] [id number] 2016-12-30 04:24:02 2016-12-30 04:24:02 Emergency [facility] [id number] 2016-12-29 14:57:00 2016-12-29 14:57:00 Outpatient [facility] [id number] 2016-12-19 09:55:22 2016-12-19 09:55:22 Outpatient [facility] [id number] 2016-12-19 08:39:32 2016-12-19 08:39:32 Outpatient [facility] [id number] 2016-12-16 00:00:00 2016-12-16 00:00:00 Outpatient [facility] [id number] 2016-12-14 08:35:27 2016-12-14 08:35:27 Outpatient [facility] [id number] 2016-12-14 07:53:29 2016-12-14 07:53:29 Outpatient [facility] [id number] 2016-12-14 00:00:00 2016-12-14 00:00:00 Outpatient [facility] [id number] 2016-12-08 09:37:02 2016-12-08 09:37:02 Outpatient [facility] [id number] 2016-12-06 09:40:30 2016-12-06 09:40:30 Outpatient [facility] [id number] 2016-12-06 08:57:24 2016-12-06 08:57:24 Outpatient [facility] [id number] 2016-10-31 00:00:00 2016-10-31 00:00:00 Outpatient [facility] [id number] 2016-10-31 00:00:00 2016-10-31 00:00:00 Outpatient [facility] [id number] 2016-10-28 00:00:00 2016-10-28 00:00:00 Outpatient [facility] [id number] 2016-10-27 09:43:21 2016-10-27 09:43:21 Outpatient [facility] [id number] 2016-10-27 00:00:00 2016-10-27 00:00:00 Outpatient [facility] [id number] 2016-10-25 00:00:00 2016-10-25 00:00:00 Outpatient [facility] [id number] 2016-10-20 13:39:24 2016-10-20 13:39:24 Outpatient [facility] [id number] 2016-10-06 10:11:56 2016-10-06 10:11:56 Outpatient [facility] [id number] 2016-10-06 08:37:19 2016-10-06 08:37:19 Outpatient [facility] [id number] 2016-10-06 08:00:23 2016-10-06 08:00:23 Outpatient [facility] [id number]
--- OUTSIDE RECORDS SUMMARY | 2019-02-05 06:03 | XMS REPORT ---
Author Author Admin, [place] Organization [facility] Address [address] [address] Phone Allergies, Adverse Reactions, Alerts Allergy Name Reaction Description Start Date Severity Status Provider ZESTRIL cough Mild Active Patricia Vickers DO Conditions or Problems Problem Name Problem Code Onset Date Status Entry Date Provider Comment Standard Description Annotate Cataract, bilateral 366.9 Active Patriciafranci Vickers DO Unspecified cataract Deconditioning 799.3 Active Patricia Kitcheney DO Debility, unspecified GERD 530.81 Active Patricia Kitcheney DO Esophageal reflux Joint pain 719.40 Active Patricia Alee DO Pain in joint, site unspecified Nausea with vomiting 787.01 Active Patricia Alee DO Nausea with vomiting ANXIETY DISORDER, UNSPECIFIED Active Marbella Trujillo EMPLOYEE RELATIONS SPECIALIST Anxiety state, unspecified DEPRESSIVE DISORDER, MAJOR, RECURRENT EPISODE, SEVERE Active Marbella Trujillo [facility] Major depressive disorder, recurrent episode, severe degree, without mention of psychotic behavior Atrial fibrillation 427.31 Active Patricia Vickers DO Atrial fibrillation Congestive heart failure, chronic 428.0 Active Patricia Vickers DO Congestive heart failure, unspecified Coronary artery disease, S/P PTCA/stent 414.00 Active Patricia Vickers DO Coronary atherosclerosis of unspecified type of vessel, nez perce or graft Diabetes mellitus type II 250.00 Active Patricia Vickers DO Diabetes mellitus without mention of complication, type II or unspecified type, not stated as uncontrolled Encounter for immunization V05.9 Active Patriciafranci Vickers Need for prophylactic vaccination and inoculation against unspecified single disease Establish care or get acquainted visit V68.89 Active Patricia Vickers DO Encounters for other specified administrative purpose Hyperlipidemia 272.4 Active Patricia Kitcheney DO Other and unspecified hyperlipidemia Hypertension 401.1 Active Patricia Kitcheney DO Benign essential hypertension Leg cramps, nocturnal 729.82 Active Patricia Kitcheney DO Cramp of limb MORBID OBESITY Active Patricia Kitcheney Morbid obesity Restless leg syndrome 333.94 Active Patricia Kitcheney DO Restless legs syndrome (RLS) Medication List Medication Instructions Start Date Stop Date Generic Name NDC Status Provider Patient Instruction ACCU-CHEK MACY PLUS IN VITRO STRIP use as directed to check BS Three Times a Day GLUCOSE BLOOD 22967136719 Active Patricia Alee Active ACCU-CHEK SOFTCLIX LANCETS use as directed to check BS Three Times a Day LANCETS 96313534645 Active Patricia Kitcheney Active RANITIDINE HCL 150 MG ORAL TABLET 1 by mouth twice a day before meals as needed for acid reflux RANITIDINE HCL 35833280560 Active Patricia Vickers DO Active ZOFRAN ODT 4 MG ORAL TABLET DISINTEGRATING one tablet SL Three Times a Day As Needed n/v ONDANSETRON 92317950756 Active Patricia Vickers DO Active BUSPIRONE HCL 10 MG ORAL TABLET 1 tab By Mouth bid BUSPIRONE HCL 43088472735 Active Rosa Everett MD Active TRAZODONE HCL 100 MG ORAL TABLET 2 tablets By Mouth take at bedtime TRAZODONE HCL 97512378445 Active Rosa Everett MD Active WELLBUTRIN XL 150 MG ORAL TABLET EXTENDED RELEASE 24 HOUR 1 tab By Mouth take at bedtime BUPROPION HCL 18794139096 Active Rosa Everett MD Active AMIODARONE HCL 200 MG ORAL TABLET one tablet By Mouth qday AMIODARONE HCL 80583026316 Active Patricia Vickers DO Active IRBESARTAN 75 MG ORAL TABLET one tablet By Mouth qday IRBESARTAN 16672867720 Active Patricia Vickers DO Active LASIX 40 MG ORAL TABLET 1 by mouth every am FUROSEMIDE 85064247321 Active Patricia Dollhney DO Active LEVEMIR FLEXTOUCH 100 UNIT/ML SUBCUTANEOUS SOLUTION PEN-INJECTOR 50 units SC Twice a Day INSULIN DETEMIR 27476614103 Active Patricia Dollhney DO Active METFORMIN HCL 1000 MG ORAL TABLET 1 by mouth twice a day METFORMIN HCL 85240125887 Active Patricia Dollhney DO Active METOPROLOL SUCCINATE ER 50 MG ORAL TABLET EXTENDED RELEASE 24 HOUR 1 tab by mouth daily METOPROLOL SUCCINATE 70863496765 Active Patricia Dollhney DO Active METOPROLOL SUCCINATE ER 50 MG ORAL TABLET EXTENDED RELEASE 24 HOUR 1 tab by mouth daily METOPROLOL SUCCINATE 29084308849 Active Patricia Dollhney DO Active NOVOLOG FLEXPEN 100 UNIT/ML SUBCUTANEOUS SOLUTION PEN-INJECTOR 10 units SC Three Times a Day before meals INSULIN ASPART 45657535570 Active Patricia Dollhney DO Active PLAVIX 75 MG ORAL TABLET 1 by mouth every day CLOPIDOGREL BISULFATE 93117949159 Active Patricia Vickers DO Active PRAVASTATIN SODIUM 20 MG ORAL TABLET one tablet By Mouth take at bedtime PRAVASTATIN SODIUM 40327581484 Active Patricia Kitcheney DO Active ROPINIROLE HCL 4 MG ORAL TABLET one tablet By Mouth take at bedtime ROPINIROLE HCL 86045137260 Active Patricia Vickers DO Active TIZANIDINE HCL 4 MG ORAL TABLET one tablet By Mouth take at bedtime TIZANIDINE HCL 61224048409 Active Patricia Vickers DO Active TRAMADOL HCL 50 MG ORAL TABLET 1 tablets by mouth 4 times a day as needed for pain TRAMADOL HCL 16456774754 Active Patricia Vickers DO Active Advance Directives Directive Description Start Date DISCUSSED - NO DECISION MADE Immunizations Vaccine Administration Date Value Standard Description influenza immunization (Flu Vax) has been administered given influenza virus vaccine, unspecified formulation PEDIATRIC PNEUMOCOCCAL VACCINE ([id number]) #1 given pneumococcal conjugate vaccine, 13 valent Vital Signs Date Name Value Unit Range Description blood pressure, diastolic 78 mm[Hg] BP fuller blood pressure, systolic 163 mm[Hg] BP sys pulse rate E&M 69 /min Heart rate weight E&M 267.25 [lb_av] Weight Measured blood pressure, diastolic 84 mm[Hg] BP fuller blood pressure, systolic 132 mm[Hg] BP sys height E&M 64 [in_us] Bdy height pulse rate E&M 70 /min Heart rate temperature E&M 97.7 [degF] Body temperature weight E&M 270.50 [lb_av] Weight Measured blood pressure, diastolic 83 mm[Hg] BP fuller blood pressure, systolic 151 mm[Hg] BP sys height E&M 64 [in_us] Bdy height pulse rate E&M 70 /min Heart rate weight E&M 273.25 [lb_av] Weight Measured blood pressure, diastolic 84 mm[Hg] BP fuller blood pressure, systolic 142 mm[Hg] BP sys height E&M 64 [in_us] Bdy height pulse rate E&M 53 /min Heart rate temperature E&M 97.9 [degF] Body temperature weight E&M 264.25 [lb_av] Weight Measured Diagnostic Results Date Name Value Unit Range Description Office Visit: Acute Visit: establish care, multiple chronic issues - Chemistry hemoglobin A1C, blood, as % of total hemoglobin 7.5 % Internal Correspondence: Pre-Visit Planning - [facility] care customer care team coach #1, name Janis Dietz Office Visit: Adult Followup: N/V, GERD, joint pain, deconditioning, cataracts - Chemistry blood glucose, fasting 136 mg/dL Encounters Date Encounter Provider Code Facility 11:42:43 CDC ASSOCIATE Est Patient Exp Problem - 24158 Rosa Everett MD CPT-37192 [facility] 11:04:59 CDC ASSOCIATE Est Patient Detailed - 07630 Patricia Alee DO CPT-16248 [facility] 12:15:29 CDT New Patient Complex - 02624 Patricia Alee DO CPT-38718 [facility] Procedures Code Procedure Name Date Entry Date Standard Description CPT-95094 Glucose Stick 11:04:59 CDC ASSOCIATE CPT-84595 Psychotherapy 45 (38-52*) min - 51363 (with patient and/or family member) 14:02:26 CDC ASSOCIATE CPT-43115 Diagnostic evaluation with medical - 24034 10:56:06 CDT CPT-30707 Diagnostic evaluation (no medical) - 05549 14:17:17 CDT CPT-28561 Prevnar (PCV13) IM 12:15:29 CDT CPT-79517 INFLUENZA VACCINE QUADRIVALENT 3 YRS PLUS IM 12:15:29 CDT
--- OUTSIDE RECORDS SUMMARY | 2019-02-05 06:03 | XMS REPORT ---
Author Author Pippa Morris eClinicalWorks Address Unknown Phone Unavailable Care Team Providers Care Metal Model Builder Name Role Phone Pippa Morris Unavailable Encounters Encounter Location Date medication interaction [facility] Jan 02, 2015 Re: interaction of currents meds w/Amiodorone [facility] Jan 02, 2015 Med ref[place] [facility] Jan 05, 2015 Rx- Pen needles (Levemir Pen) [facility] [place] Jan 07, 2015 Test results [facility] Dec 26, 2014 Message [facility] Jan 05, 2015 Message [facility] Jan 07, 2015 Problems Problem Type Condition ICD-9 Code Onset Dates Condition Status Problem Restless leg syndrome 333.99 Active Problem Vitamin B12 deficiency 266.2 Active Problem CHF 428.0 Active Problem Atrial fibrillation 427.31 Active Problem DM Type 2-uncontrolled 250.02 Active Problem HTN- benign 401.1 Active Problem CAD- stent 414.01 Active Problem fatigue-depression/anxiety 780.79 Active Problem Hyperlipidemia 272.4 Active Medications Medication Code System Code Instructions Start Date End Date Status Dosage BD Pen Needle Loni 32GX5/32" Unknown 0 - - BID with Levemir Jan 07, 2015 Active use as directed Social History Social History Element Qualifiers Date Reported Tobacco Use: no. Are you a: never smoker Dec 31, 2014 Alcohol: no. 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
--- OUTSIDE RECORDS SUMMARY | 2019-02-05 06:03 | XMS REPORT ---
Author Author Juan Villarreal Organization eClinicalWorks Address Unknown Phone Unavailable Care Team Providers Care Billing Analyst Name Role Phone Juan Villarreal CP Unavailable Encounters Encounter Location Date 2014 [employer] P[facility] Jan 22, 2015 Unknown [facility] Jan 27, 2015 medication interaction [facility] Jan 02, 2015 Re: interaction of currents meds w/Amiodorone [facility] Jan 02, 2015 Test results [facility] Dec 26, 2014 Message [facility] Jan 05, 2015 Message [facility] Jan 07, 2015 Med refills [facility] [place] Jan 05, 2015 Rx- Pen needles (Levemir Pen) [facility] Jan 07, 2015 Problems Problem Type Condition ICD-9 Code Onset Dates Condition Status Problem Anxiety disorder NOS 300.00 Active Problem Morbid obesity 278.01 Active Problem Chronic systolic CHF (congestive heart failure) 428.22 Active Problem Coronary atherosclerosis of [place] vessel 414.01 Active Problem Cardiomyopathy NOS 425.4 Active Problem Chronic systolic heart failure 428.22 Active Problem Dyspnea 786.09 Active Problem Benign hypertension 401.1 Active Problem Atrial fibrillation 427.31 Active Social History Social History Element Qualifiers Date Reported Caffeine: . no Jan 22, 2015 Tobacco Use: . Smoking Status: never smoker Jan 22, 2015 Alcohol: . no Jan 22, 2015 Summary Purpose eClinicalWorks Submission
--- OUTSIDE RECORDS SUMMARY | 2019-02-05 06:03 | XMS REPORT ---
Author Author Juan Villarreal eClinicalWorks Address Unknown Phone Unavailable Care Team Providers Care Purchasing Specialist Name Role Phone Juan Villarreal Unavailable Encounters Encounter Location Date medication interaction [facility] Jan 02, 2015 Re: interaction of currents meds w/Amiodorone [facility] Jan 02, 2015 Med refills [facility] Jan 05, 2015 Rx- Pen needles (Levemir Pen) [facility] Jan 07, 2015 Test results [facility] Dec 26, 2014 Message [facility] Jan 05, 2015 Message [facility] Jan 07, 2015 Problems Problem Type Condition ICD-9 Code Onset Dates Condition Status Problem Benign hypertension 401.1 Active Problem Atrial fibrillation 427.31 Active Problem Coronary atherosclerosis of [place] vessel 414.01 Active Problem Anxiety disorder NOS 300.00 Active Problem Morbid obesity 278.01 Active Problem Chronic systolic heart failure 428.22 Active Problem Dyspnea 786.09 Active Summary Purpose eClinicalWorks Submission
--- OUTSIDE RECORDS SUMMARY | 2019-02-05 06:03 | XMS REPORT | Continuity of Care Document ---
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 Name Role Phone [employer] Unavailable Unavailable Problems Problem Status Onset Date Classification Date Reported Comments Source Cataract, bilateral Active 04/06/2018 Diagnosis 04/30/2018 [facility] Joint pain Active 04/06/2018 Diagnosis 04/30/2018 [facility] Deconditioning Active 04/06/2018 Diagnosis 04/30/2018 [facility] GERD Active 04/06/2018 Diagnosis 04/30/2018 [facility] Nausea with vomiting Active 04/06/2018 Diagnosis 04/30/2018 [facility] DEPRESSIVE DISORDER, MAJOR, RECURRENT EPISODE, SEVERE Active 03/12/2018 Diagnosis 04/30/2018 [facility] ANXIETY DISORDER, UNSPECIFIED Active 03/12/2018 Diagnosis 04/30/2018 [facility] MORBID OBESITY Active 03/06/2018 Diagnosis 04/30/2018 [facility] Congestive heart failure, chronic Active 03/06/2018 Diagnosis 04/30/2018 [facility] Atrial fibrillation Active 03/06/2018 Diagnosis 04/30/2018 [facility] Hyperlipidemia Active 03/06/2018 Diagnosis 04/30/2018 [facility] Hypertension Active 03/06/2018 Diagnosis 04/30/2018 [facility] Restless leg syndrome Active 03/06/2018 Diagnosis 04/30/2018 [facility] Leg cramps, nocturnal Active 03/06/2018 Diagnosis 04/30/2018 [facility] Diabetes mellitus type II Active 03/06/2018 Diagnosis 04/30/2018 [facility] Coronary artery disease, S/P PTCA/stent Active 03/06/2018 Diagnosis 04/30/2018 [facility] Encounter for immunization Active 03/06/2018 Diagnosis 04/30/2018 [facility] Establish care or get acquainted visit Active 03/06/2018 Diagnosis 04/30/2018 [facility] CHEST PAIN Active 12/21/2014 [facility] OTHER Active 12/07/2014 [facility] NEW ONSET CONGESTIVE HEART FAILURE/DYSPN Active 12/07/2014 [facility] Anxiety (finding) Active Problem 12/15/2014 [facility] Depression - motion (qualifier value) Resolved Problem 12/15/2014 [facility] Diabetes mellitus type 2 in obese (disorder) Resolved Problem 12/15/2014 [facility] Myocardial infarction (disorder) Resolved Problem 12/15/2014 [facility] Viral hepatitis C (disorder) Active Problem 12/15/2014 [facility] Hypercholesterolemia (disorder) Active Problem 12/15/2014 [facility] Hypertensive disorder, systemic arterial (disorder) Active Problem 12/15/2014 [facility] Benign hypertension Active Problem 01/28/2015 [facility] Coronary atherosclerosis of lumbee vessel Active Problem 01/28/2015 [facility] Anxiety disorder NOS Active Problem 01/28/2015 [facility] Morbid obesity Active Problem 01/28/2015 [facility] Chronic systolic heart failure Active Problem 01/28/2015 [facility] Dyspnea Active Problem 01/28/2015 [facility] Chronic systolic CHF (congestive heart failure) Active Problem 01/28/2015 [facility] Cardiomyopathy NOS Active Problem 01/28/2015 [facility] Restless leg syndrome Active Problem 01/08/2015 [facility] Vitamin B12 deficiency Active Problem 01/08/2015 [facility] CHF Active Problem 01/08/2015 [facility] DM Type 2-uncontrolled Active Problem 01/08/2015 [facility] HTN- benign Active Problem 01/08/2015 [facility] CAD- stent Active Problem 01/08/2015 [facility] fatigue-depression/anxiety Active Problem 01/08/2015 [facility] CHF NOS Active [facility] RESPIRATORY ABNORM NEC Active [facility] CHEST PAIN NOS Active [facility] Medications Medication Details Route Status Patient Instructions Ordering Provider Order Date Source RANITIDINE HCL 1 by mouth twice a day before meals as needed for acid reflux Active 1 by mouth twice a day before meals as needed for acid reflux 04/06/2018 [facility] ONDANSETRON one tablet SL Three Times a Day As Needed n/v Active one tablet SL Three Times a Day As Needed n/v 04/06/2018 [facility] LANCETS use as directed to check BS Three Times a Day Active use as directed to check BS Three Times a Day 04/06/2018 [facility] GLUCOSE BLOOD use as directed to check BS Three Times a Day Active use as directed to check BS Three Times a Day 04/06/2018 [facility] ZOFRAN ODT 4 MG ORAL TABLET DISINTEGRATING one tablet SL Three Times a Day As Needed n/v Active one tablet SL Three Times a Day As Needed n/v 04/06/2018 [facility] TRAZODONE HCL 2 tablets By Mouth take at bedtime Active 2 tablets By Mouth take at bedtime 03/20/2018 [facility] WELLBUTRIN XL 150 MG ORAL TABLET EXTENDED RELEASE 24 HOUR 1 tab By Mouth take at bedtime Active 1 tab By Mouth take at bedtime 03/20/2018 [facility] BUSPIRONE HCL 1 tab By Mouth bid Active 1 tab By Mouth bid 03/20/2018 [facility] TIZANIDINE HCL one tablet By Mouth take at bedtime Active one tablet By Mouth take at bedtime 03/06/2018 [facility] ROPINIROLE HCL one tablet By Mouth take at bedtime Active one tablet By Mouth take at bedtime 03/06/2018 [facility] NOVOLOG FLEXPEN 100 UNIT/ML SUBCUTANEOUS SOLUTION PEN-INJECTOR 10 units SC Three Times a Day before meals Active 10 units SC Three Times a Day before meals 03/06/2018 [facility] METFORMIN HCL 1 by mouth twice a day Active 1 by mouth twice a day 03/06/2018 [facility] LEVEMIR FLEXTOUCH 100 UNIT/ML SUBCUTANEOUS SOLUTION PEN-INJECTOR 50 units SC Twice a Day Active 50 units SC Twice a Day 03/06/2018 [facility] TRAMADOL HCL 1 tablets by mouth 4 times a day as needed for pain Active 1 tablets by mouth 4 times a day as needed for pain 03/06/2018 [facility] PRAVASTATIN SODIUM one tablet By Mouth take at bedtime Active one tablet By Mouth take at bedtime 03/06/2018 [facility] METOPROLOL SUCCINATE ER 50 MG ORAL TABLET EXTENDED RELEASE 24 HOUR 1 tab by mouth daily Active 1 tab by mouth daily 03/06/2018 [facility] IRBESARTAN one tablet By Mouth qday Active one tablet By Mouth qday 03/06/2018 [facility] LASIX 40 MG ORAL TABLET 1 by mouth every am Active 1 by mouth every am 03/06/2018 [facility] PLAVIX 75 MG ORAL TABLET 1 by mouth every day Active 1 by mouth every day 03/06/2018 [facility] AMIODARONE HCL one tablet By Mouth qday Active one tablet By Mouth qday 03/06/2018 [facility] BD Pen Needle Loni 32GX5/32" use as directed - Active - - BID with [facility] Furosemide 40 MG Oral Tablet [Lasix] 40 mg, 1 tab, Route: PO, Drug form: TAB, Daily, Dosing Weight 112.3, kg, Start date: 12/12/14 9:00:00, Duration: 30 day, Stop date: 01/10/15 9:00:00Notes: (Same as: Lasix) May cause GI upset. Give with food or milk. Inactive 12/12/2014 [facility] Amiodarone 200 mg, 1 tab, Route: PO, Drug form: TAB, BID- Meals, Dosing Weight 112.3, kg, Start date: 12/12/14 8:00:00, Duration: 30 day, Stop date: 01/10/15 17:00:00Notes: (Same as: Cordarone) Inactive 12/12/2014 [facility] Furosemide 40 MG Oral Tablet [Lasix] 40 mg=1 tab, PO, Daily, # 30 tab, 0 Refill(s) Active 12/12/2014 [facility] clopidogrel 75 mg oral tablet 75 mg=1 tab, PO, Daily, # 30 tab, 0 Refill(s) Active 12/12/2014 [facility] Aspirin 81 MG Enteric Coated Tablet 81 mg=1 tab, PO, Daily, # 100 tab, 0 Refill(s) Active 12/12/2014 [facility] apixaban 5 mg oral tablet 5 mg=1 tab, PO, Q12H, # 60 tab, 0 Refill(s) Active 12/12/2014 [facility] AMIODarone 200 mg oral tablet 200 mg=1 tab, PO, BID-Meals, # 60 tab, 0 Refill(s) Active 12/12/2014 [facility] Digoxin 0.25 mg, 1 mL, Route: IVP, Drug form: INJ, Q6H, Dosing Weight 112.3, kg, start this load 6 hours after initial bolus of 500mcg is given, Start date: 12/11/14 14:00:00, Duration: 2 doses or times, Stop date: 12/11/14 20:00:00Notes: (Same as: Lanoxin) Inactive 12/11/2014 [facility] Levemir 14 unit, 0.14 mL, Route: SUB-Q, Drug form: INJ, BID, Dosing Weight 112.3, kg, Start date: 12/11/14 9:00:00, Duration: 30 day, Stop date: 01/09/15 17:00:00Notes: Same as Levemir Do not hold insulin without contacting prescriber "single patient use only" No Longer Active 12/11/2014 [facility] Insulin, Aspart, Human 5 unit, 0.05 mL, Route: SUB-Q, Drug form: SOLN, Before Lunch, Dosing Weight 112.3, kg, Start date: 12/11/14 7:50:00, Duration: 30 day, Stop date: 01/09/15 11:30:00Notes: Roll in palms of hands gently; Do not shake vigorously. (Same as: NovoLOG) "single patient use only" Stable for 28 days at room temperature. Expires in days from Date No Longer Active 12/11/2014 [facility] Digoxin 500 microgram, 2 mL, Route: IVP, Drug form: INJ, ONCE, Dosing Weight 112.3, kg, Start date: 12/11/14 7:47:00, Stop date: 12/11/14 7:47:00Notes: (Same as: Lanoxin) Inactive 12/11/2014 [facility] Levemir 12 unit, 0.12 mL, Route: SUB-Q, Drug form: INJ, BID, Dosing Weight 112.3, kg, Start date: 12/10/14 17:00:00, Duration: 30 day, Stop date: 01/09/15 9:00:00Notes: Same as Levemir Do not hold insulin without contacting prescriber "single patient use only" No Longer Active 12/10/2014 [facility] Insulin, Aspart, Human 5 unit, 0.05 mL, Route: SUB-Q, Drug form: SOLN, Before Dinner, Dosing Weight 112.3, kg, Start date: 12/10/14 16:30:00, Duration: 30 day, Stop date: 01/08/15 16:30:00Notes: Roll in palms of hands gently; Do not shake vigorously. (Same as: NovoLOG) "single patient use only" Stable for 28 days at room temperature. Expires in days from Date No Longer Active 12/10/2014 [facility] Docusate 100 mg, 1 cap, Route: PO, Drug form: CAP, Daily, Dosing Weight 112.3, kg, Start date: 12/10/14 11:56:00, Duration: 30 day, Stop date: 01/09/15 9:00:00Notes: (Same as: Colace) (Do Not Crush) No Longer Active 12/10/2014 [facility] Miralax 17 gm, 1 pkt, Route: PO, Drug form: PWDR, Daily, Dosing Weight 112.3, kg, Start date: 12/10/14 11:56:00, Duration: 30 day, Stop date: 01/09/15 9:00:00Notes: Dissolve in 8 oz of water or juice. (Same as: Miralax) No Longer Active 12/10/2014 [facility] Insulin, Aspart, Human 3 unit, 0.03 mL, Route: SUB-Q, Drug form: SOLN, Before Lunch, Dosing Weight 112.3, kg, Start date: 12/10/14 11:30:00, Duration: 30 day, Stop date: 01/08/15 11:30:00Notes: Roll in palms of hands gently; Do not shake vigorously. (Same as: NovoLOG) "single patient use only" Stable for 28 days at room temperature. Expires in days from Date No Longer Active 12/10/2014 [facility] Eliquis 5 mg, 1 tab, Route: PO, Drug form: TAB, Q12H, Dosing Weight 112.3, kg, Start date: 12/10/14 9:00:00, Duration: 30 day, Stop date: 01/08/15 21:00:00Notes: Same as: Eliquis No Longer Active 12/10/2014 [facility] clopidogrel 75 mg, 1 tab, Route: PO, Drug form: TAB, Daily, Dosing Weight 112.3, kg, Start date: 12/10/14 9:00:00, Duration: 30 day, Stop date: 01/07/15 21:00:00Notes: (Same As: Plavix) No Longer Active 12/10/2014 [facility] Aspirin 81 MG Enteric Coated Tablet 81 mg, 1 tab, Route: PO, Drug form: ECTAB, Daily, Dosing Weight 112.3, kg, Start date: 12/10/14 9:00:00, Duration: 30 day, Stop date: 01/08/15 9:00:00Notes: Do not crush or chew. (Same As: Ecotrin) No Longer Active 12/10/2014 [facility] Plavix 75 mg, Route: PO, Drug form: TAB, Daily, Dosing Weight 112.3, kg, Start date: 12/10/14 9:00:00, Duration: 30 day, Stop date: 01/08/15 9:00:00 No Longer Active 12/10/2014 [facility] Amiodarone 200 mg, 1 tab, Route: PO, Drug form: TAB, TID- Meals, Dosing Weight 112.3, kg, Start date: 12/10/14 8:00:00, Duration: 30 day, Stop date: 01/08/15 17:00:00Notes: (Same as: Cordarone) No Longer Active 12/10/2014 [facility] Amiodarone 200 mg, 1 tab, Route: PO, Drug form: TAB, BID, Dosing Weight 112.3, kg, Start date: 12/09/14 17:00:00, Duration: 30 day, Stop date: 01/08/15 9:00:00Notes: (Same as: Cordarone) No Longer Active 12/09/2014 [facility] Nitroglycerin 0.4 mg, Route: SL, Drug form: TAB, Q5Min, Dosing Weight 112.3, kg, PRN Chest Pain, Start date: 12/09/14 15:15:00, Duration: 3 doses or times, Stop date: Limited # of times Inactive 12/09/2014 [facility] clopidogrel 600 mg, 2 tab, Route: PO, Drug form: TAB, ONCE, Dosing Weight 112.3, kg, Priority: NOW, Start date: 12/09/14 15:15:00, Stop date: 12/09/14 15:15:00Notes: ( Same as: Plavix) Inactive 12/09/2014 [facility] Sodium Chloride 0.154 MEQ/ML Injectable Solution 500 mL, Rate: 50 ml/hr, Infuse over: 10 hr, Route: IV, Dosing Weight 112.3 kg, Total Volume: 500, Start date: 12/09/14 15:15:00, Duration: 1 doses or times, Stop date: 12/10/14 1:14:00 No Longer Active 12/09/2014 [facility] heparin sodium, porcine 5000 UNT/ML Injectable Solution 4,000 unit, 4 mL, Route: IV, Drug form: INJ, ONCE, Dosing Weight 112.3, kg, Start date: 12/09/14 8:32:00, Stop date: 12/09/14 8:32:00 Inactive 12/09/2014 [facility] heparin additive 25,000 unit [14 unit/kg/hr] + Premix Diluent Dextrose 5% 500 mL 500 mL, Rate: 22.23 ml/hr, Infuse over: 22.5 hr, Route: IV, Dosing Weight 79.4 kg, Total Volume: 500 mL, Start date: 12/09/14 7:50:00, Duration: 30 day, Stop date: 01/08/15 7:49:00 Inactive 12/09/2014 [facility] Morphine 2 mg, 1 mL, Route: IVP, Drug form: INJ, ONCE, Dosing Weight 112.3, kg, Start date: 12/09/14 7:17:00, Stop date: 12/09/14 7:17:00Notes: (Same as:MORPhine Sulfate) Inactive 12/09/2014 [facility] Magnesium Sulfate 1 gm, 100 mL, Route: IVPB, Drug form: INJ, ONCE, Dosing Weight 112.3, kg, Start date: 12/08/14 10:45:00, Stop date: 12/08/14 10:45:00 Inactive 12/08/2014 [facility] irbesartan 300 mg, 2 tab, Route: PO, Drug form: TAB, Daily, Dosing Weight 112.3, kg, Start date: 12/08/14 9:00:00, Duration: 30 day, Stop date: 01/06/15 9:00:00Notes: (Same as:Avapro) No Longer Active 12/08/2014 [facility] Folic Acid 1 mg, 1 tab, Route: PO, Drug form: TAB, Daily, Dosing Weight 112.3, kg, Start date: 12/08/14 9:00:00, Duration: 30 day, Stop date: 01/06/15 9:00:00Notes: (Same as: Folvite) No Longer Active 12/08/2014 [facility] Wellbutrin XL 300 mg, 2 tab, Route: PO, Drug form: ERTAB, Daily, Dosing Weight 112.3, kg, Start date: 12/08/14 9:00:00, Duration: 30 day, Stop date: 01/06/15 9:00:00Notes: (Same as: Wellbutrin XL) "Do Not Crush" No Longer Active 12/08/2014 [facility] Aspirin 81 mg, 1 tab, Route: PO, Drug form: ECTAB, Daily, Dosing Weight 112.3, kg, Start date: 12/08/14 9:00:00, Duration: 30 day, Stop date: 01/06/15 9:00:00Notes: Do not crush or chew. (Same As: Ecotrin) No Longer Active 12/08/2014 [facility] Verapamil 360 mg, 2 tab, Route: PO, Drug form: ERTAB, QAM, Dosing Weight 112.3, kg, Start date: 12/08/14 9:00:00, Duration: 30 day, Stop date: 01/06/15 9:00:00Notes: Do not crush or chew. (Same As: Calan SR, Isoptin SR) "Avoid grapefruit and grapefruit juice" No Longer Active 12/08/2014 [facility] Isosorbide 60 mg, 1 tab, Route: PO, Drug form: ERTAB, QAM, Dosing Weight 112.3, kg, Start date: 12/08/14 9:00:00, Duration: 30 day, Stop date: 01/06/15 9:00:00Notes: (Same as:Imdur) "Do Not Crush" Take on empty stomach/ full glass of water. Do not crush No Longer Active 12/08/2014 [facility] Enoxaparin 40 mg, 0.4 mL, Route: SUB-Q, Drug form: INJ, Q12H, Dosing Weight 112.3, kg, Consider for obese patients, Start date: 12/07/14 21:00:00, Duration: 30 day, Stop date: 01/06/15 9:00:00Notes: (Same as: Lovenox) No Longer Active 12/08/2014 [facility] Trazodone 300 mg, 2 tab, Route: PO, Drug form: TAB, Bedtime, Dosing Weight 112.3, kg, Start date: 12/07/14 21:00:00, Duration: 30 day, Stop date: 01/05/15 21:00:00Notes: (Same As: Desyrel) No Longer Active 12/08/2014 [facility] Pravastatin 80 mg, 4 tab, Route: PO, Drug form: TAB, Bedtime, Dosing Weight 112.3, kg, Start date: 12/07/14 21:00:00, Duration: 30 day, Stop date: 01/05/15 21:00:00Notes: (Same as: Pravachol) No Longer Active 12/08/2014 [facility] Zanaflex 4 mg, 1 tab, Route: PO, Drug form: TAB, Bedtime, Dosing Weight 112.3, kg, Start date: 12/07/14 21:00:00, Duration: 30 day, Stop date: 01/05/15 21:00:00Notes: (Same As: Zanaflex) No Longer Active 12/08/2014 [facility] ferrous sulfate 325 mg, 1 tab, Route: PO, Drug form: TAB, TID-Meals, Dosing Weight 112.3, kg, Start date: 12/07/14 17:00:00, Duration: 30 day, Stop date: 01/06/15 12:00:00Notes: Give with food. iron elemental [id number] g as ferrous sulfate Dose=___mg elemental iron No Longer Active 12/07/2014 [facility] Clonidine Hydrochloride 0.1 MG Oral Tablet 0.1 mg, 1 tab, Route: PO, Drug form: TAB, BID, Dosing Weight 112.3, kg, Start date: 12/07/14 17:00:00, Duration: 30 day, Stop date: 01/06/15 9:00:00Notes: (Same As: Catapres) No Longer Active 12/07/2014 [facility] Coreg 12.5 mg, 1 tab, Route: PO, Drug form: TAB, BID, Dosing Weight 112.3, kg, Start date: 12/07/14 17:00:00, Duration: 30 day, Stop date: 01/06/15 9:00:00Notes: Give with food. (Same As: Coreg) No Longer Active 12/07/2014 [facility] Lasix 40 mg, 4 mL, Route: IVP, Drug form: INJ, BID, Dosing Weight 112.3, kg, Start date: 12/07/14 17:00:00, Duration: 30 day, Stop date: 01/06/15 9:00:00Notes: (Same as: Lasix) MEDICATION WASTE Product Size: 40 mg Product Wasted: ___ mg No Longer Active 12/07/2014 [facility] Levemir 10 unit, 0.1 mL, Route: SUB-Q, Drug form: INJ, BID, Dosing Weight 112.3, kg, Start date: 12/07/14 17:00:00, Duration: 30 day, Stop date: 01/06/15 9:00:00Notes: Same as Levemir Do not hold insulin without contacting prescriber "single patient use only" No Longer Active 12/07/2014 [facility] Requip 1 mg, 1 tab, Route: PO, Drug form: TAB, Bedtime, Dosing Weight 112.3, kg, Start date: 12/07/14 17:00:00, Stop date: 01/05/15 21:00:00Notes: (Same as: Requip) No Longer Active 12/07/2014 [facility] Acetaminophen 325 MG / Hydrocodone Bitartrate 10 MG Oral Tablet [Emerson 10/325] 1 tab, Route: PO, Drug Form: TAB, Dosing Weight 112.3, kg, Q4H, PRN Pain Score 4-6, Start date: 12/07/14 16:46:00, Duration: 30 day, Stop date: 01/06/15 16:45:00Notes: Do not exceed 4gm/day of acetaminophen. (Same as: Emerson 325/10) No Longer Active 12/07/2014 [facility] Zofran 4 mg, 2 mL, Route: IV, Drug form: INJ, Q8H, Dosing Weight 112.3, kg, PRN Nausea, Start date: 12/07/14 16:45:00, Duration: 30 day, Stop date: 01/06/15 16:44:00Notes: (Same as: Zofran) MEDICATION WASTE Product Size: 4 mg Product Wasted: ___ mg No Longer Active 12/07/2014 [facility] Tylenol 650 mg, 2 tab, Route: PO, Drug form: TAB, Q6H, Dosing Weight 112.3, kg, PRN For Temp > 100.4 F, Start date: 12/07/14 16:45:00, Duration: 30 day, Stop date: 01/06/15 16:44:00Notes: Do not exceed 4 gm/day. (Same as: Tylenol) No Longer Active 12/07/2014 [facility] Insulin, Aspart, Human 3 unit, 0.03 mL, Route: SUB-Q, Drug form: SOLN, TID-Before Meals, Dosing Weight 112.3, kg, PRN Blood Glucose Results, Start date: 12/07/14 16:18:00, Duration: 30 day, Stop date: 01/06/15 16:17:00Notes: Roll in palms of hands gently; Do not shake vigorously. (Same as: NovoLOG) "single patient use only" Stable for 28 days at room temperature. Expires in days from Date No Longer Active 12/07/2014 [facility] Glucagon 1 mg, Route: IM, Drug form: PDR/INJ, PRN, Dosing Weight 112.3, kg, PRN Blood Glucose Results, Start date: 12/07/14 16:18:00, Duration: 30 day, Stop date: 01/06/15 16:17:00 No Longer Active 12/07/2014 [facility] Dextrose 50% Syringe 12.5 gm, 25 mL, Route: IVP, Drug Form: INJ, Dosing Weight 112.3, kg, PRN, PRN Blood Glucose Results, Start date: 12/07/14 16:18:00, Duration: 30 day, Stop date: 01/06/15 16:17:00 No Longer Active 12/07/2014 [facility] Nitroglycerin 0.4 MG Sublingual Tablet [Nitrostat] 0.4 mg, 1 tab, Route: SL, Drug form: TAB, Q5Min, Dosing Weight 112.3, kg, PRN as needed for chest pain, Start date: 12/07/14 16:12:00, Duration: 30 day, Stop date: 01/06/15 16:11:00Notes: (Same as:Nitroquick, Nitrostat) "Do Not Crush" Sublingual tablet No Longer Active 12/07/2014 [facility] Alprazolam 0.25 MG Oral Tablet [Xanax] 0.25 mg, 1 tab, Route: PO, Drug form: TAB, Bedtime, Dosing Weight 112.3, kg, PRN as needed for anxiety, Start date: 12/07/14 16:10:00, Duration: 30 day, Stop date: 01/06/15 16:09:00Notes: With food or milk (Same as: Xanax) No Longer Active 12/07/2014 [facility] Acetaminophen 650 mg, 2 tab, Route: PO, Drug form: TAB, Q4H, Dosing Weight 120.455, kg, PRN Pain 1-3/Temp > 100.4 F, Start date: 12/07/14 12:16:00, Duration: 30 day, Stop date: 01/06/15 12:15:00Notes: Do not exceed 4 gm/day. (Same as: Tylenol) No Longer Active 12/07/2014 [facility] Ondansetron 4 mg, 2 mL, Route: IVP, Drug form: INJ, Q6H, Dosing Weight 120.455, kg, PRN Nausea & Vomiting, Start date: 12/07/14 12:16:00, Duration: 30 day, Stop date: 01/06/15 12:15:00Notes: (Same as: Leah) MEDICATION WASTE Product Size: 4 mg Product Wasted: ___ mg Inactive 12/07/2014 [facility] 3 ML liraglutide 6 MG/ML Prefilled Syringe [Victoza] 1.2 mg, SUB-Q, Daily, # 3 ea, 3 Refill(s) Active 12/07/2014 [facility] verapamil 180 mg oral tablet, extended release 360 mg=2 tab, PO, QAM, # 30 tab, 0 Refill(s) Active 12/07/2014 [facility] trazodone 150 mg oral tablet 300 mg=2 tab, PO, Bedtime, # 90 tab, 0 Refill(s) Active 12/07/2014 [facility] Linagliptin 5 MG Oral Tablet [Tradjenta] 5 mg=1 tab, PO, Daily, # 90 tab, 1 Refill(s) Active 12/07/2014 [facility] tizanidine 4 MG Oral Tablet [Zanaflex] 4 mg=1 tab, PO, Bedtime, # 540 tab, 0 Refill(s) Active 12/07/2014 [facility] ropinirole 1 MG Oral Tablet [Requip] 1 mg=1 tab, PO, BID, # 30 tab, 1 Refill(s) Active 12/07/2014 [facility] Nitroglycerin 0.4 MG Sublingual Tablet [Nitrostat] 0.4 mg=1 tab, SL, Q5Min, PRN Chest Pain, # 100 tab, 0 Refill(s) Active 12/07/2014 [facility] pravastatin 80 mg oral tablet 80 mg=1 tab, PO, Bedtime, # 30 tab, 0 Refill(s) Active 12/07/2014 [facility] Metformin hydrochloride 1000 MG Oral Tablet 1,000 mg=1 tab, PO, QAM, # 30 tab, 0 Refill(s) Active 12/07/2014 [facility] Metformin hydrochloride 1000 MG Oral Tablet 1,500 mg=1.5 tab, PO, Bedtime, # 30 tab, 0 Refill(s) Active 12/07/2014 [facility] 3 ML insulin detemir 100 UNT/ML Prefilled Syringe [Levemir] 26 unit, SUB-Q, BID, # 1 pen(s), 3 Refill(s) Active 12/07/2014 [facility] isosorbide mononitrate 60 mg oral tablet, extended release 60 mg=1 tab, PO, QAM, # 30 tab, 0 Refill(s) Active 12/07/2014 [facility] irbesartan 300 mg oral tablet 300 mg=1 tab, PO, Daily, # 30 tab, 0 Refill(s) Active 12/07/2014 [facility] Acetaminophen 325 MG / Hydrocodone Bitartrate 5 MG Oral Tablet [Emerson 5/325] 1 tab, PO, TID, PRN Pain, # 60 tab, 0 Refill(s) Active 12/07/2014 [facility] Folic Acid 1 MG Oral Tablet 1 mg=1 tab, PO, Daily, # 30 tab, 0 Refill(s) Active 12/07/2014 [facility] ferrous sulfate 325 mg oral enteric coated tablet 325 mg=1 tab, PO, TID, # 30 tab, 0 Refill(s) Active 12/07/2014 [facility] estradiol-norethindrone 1 mg-0.5 mg oral tablet 1 tab, PO, Daily, # 28 tab, 0 Refill(s) Active 12/07/2014 [facility] Clonidine Hydrochloride 0.1 MG Oral Tablet 0.1 mg=1 tab, PO, BID, # 90 tab, 3 Refill(s) Active 12/07/2014 [facility] carvedilol 12.5 MG Oral Tablet [Coreg] 12.5 mg=1 tab, PO, BID, # 60 tab, 0 Refill(s) Active 12/07/2014 [facility] Carisoprodol 350 MG Oral Tablet [Soma] 350 mg=1 tab, PO, Bedtime, # 21 tab, 0 Refill(s) Active 12/07/2014 [facility] 24 HR Bupropion Hydrochloride 300 MG Extended Release Tablet [Wellbutrin] 300 mg=1 tab, PO, Daily, # 30 tab, 0 Refill(s) Active 12/07/2014 [facility] Alprazolam 0.25 MG Oral Tablet [Xanax] 0.25 mg=1 tab, PO, Bedtime, PRN Anxiety Active 12/07/2014 [facility] Nitroglycerin 0.02 MG/MG Topical Ointment 0.5 inch, Route: TOP, Drug Form: OINT, Dosing Weight 120.455, kg, ONCE, STAT, Start date: 12/07/14 10:30:00, Stop date: 12/07/14 10:30:00Notes: 1 gram is approximately 1 inch of nitroglycerin ointment (20 mg NTG per gram) (Same as:Nitro-Bid) Inactive 12/07/2014 [facility] Furosemide 60 mg, 6 mL, Route: IV, Drug form: INJ, ONCE, Dosing Weight 120.455, kg, Priority: STAT, Start date: 12/07/14 9:22:00, Stop date: 12/07/14 9:22:00Notes: (Same as: Lasix) MEDICATION WASTE Product Size: 40 mg Product Wasted: ___ mg Inactive 12/07/2014 [facility] Aspirin 325 mg, 1 tab, Route: PO, Drug form: TAB, ONCE, Dosing Weight 120.455, kg, Priority: STAT, Start date: 12/07/14 8:59:00, Stop date: 12/07/14 8:59:00Notes: Take with food. Inactive 12/07/2014 [facility] Saline Flush 0.9% 10 mL, Route: IVP, Drug Form: INJ, Dosing Weight 120.455, kg, PRN, PRN Line Flush, Start date: 12/07/14 8:59:00, Duration: 30 day, Stop date: 01/06/15 8:58:00Notes: preservative free. No Longer Active 12/07/2014 [facility] Eliquis 1 tab(s) orally Active 5 mg orally 2 times a day [facility] clopidogrel 1 tab(s) orally Active 75 mg orally once a day [facility] metformin 1 tab(s) in the AM and 1 1/2 tab in PM orally Active 1000 mg orally BID [facility] Levemir FlexPen 26 units subcutaneously Active 100 units/mL subcutaneously TWICE A DAY [facility] isosorbide mononitrate 1 tab(s) orally Active 60 mg orally once a day (in the morning) [facility] Allergies, Adverse Reactions, Alerts Substance Category Reaction Severity Reaction type Status Date Reported Comments Source ZESTRIL drug allergy cough 03/06/2018 [facility] Lactose Intolerance (Restricts Milk/Milk Products) Assertion Propensity to adverse reactions to food Active [facility] Zestril Assertion Drug allergy Active [facility] Immunizations Immunization Date Given Site Status Last Updated Comments Source influenza immunization (Flu Vax) has been administered 03/06/2018 completed [facility] PEDIATRIC PNEUMOCOCCAL VACCINE ([id number]) #1 03/06/2018 completed [facility] Results Order Name Results Value Reference Range Date Interpretation Comments Source blood glucose, fasting 136 04/06/2018 [facility] care team lead #1, name Janis Dietz 04/05/2018 [facility] hemoglobin A1C, blood, as % of total hemoglobin 7.5 03/06/2018 [facility] blood glucose, fasting 124 03/06/2018 [facility] ELECTROLYTES Sodium Lvl 136 135 - 145 12/12/2014 [facility] ELECTROLYTES Potassium Lvl 4.0 3.5 - 5.1 12/12/2014 [facility] ELECTROLYTES Chloride Lvl 101 95 - 109 12/12/2014 [facility] ELECTROLYTES eGFR 71 12/12/2014 Result Comment: The eGFR is calculated using the [...] from the National Kidney Disease Education Program (NKDEP) which additionally recommends that when the eGFR is used in patients with extremes of body mass index for purposes of drug dosing, the eGFR should be multiplied by the estimated BMI. [facility] ELECTROLYTES Calcium Lvl 8.2 8.5 - 10.5 12/12/2014 [facility] ELECTROLYTES Creatinine Lvl 0.9 0.5 - 1.4 12/12/2014 [facility] ELECTROLYTES BUN 23 7 - 22 12/12/2014 [facility] ELECTROLYTES CO2 24 24 - 32 12/12/2014 [facility] ELECTROLYTES Glucose Lvl 159 70 - 99 12/12/2014 [facility] ELECTROLYTES AGAP 15.0 10.0 - 20.0 12/12/2014 [facility] CHEM PANEL Magnesium Lvl 1.9 1.8 - 2.4 12/11/2014 [facility] CHEM PANEL eGFR 62 12/11/2014 Result Comment: The eGFR is calculated using the [...] from the National Kidney Disease Education Program (NKDEP) which additionally recommends that when the eGFR is used in patients with extremes of body mass index for purposes of drug dosing, the eGFR should be multiplied by the estimated BMI. [facility] CHEM PANEL Creatinine Lvl 1.0 0.5 - 1.4 12/11/2014 [facility] CHEM PANEL Sodium Lvl 139 135 - 145 12/11/2014 [facility] CHEM PANEL Potassium Lvl 4.4 3.5 - 5.1 12/11/2014 [facility] CHEM PANEL Chloride Lvl 102 95 - 109 12/11/2014 [facility] CHEM PANEL Calcium Lvl 8.1 8.5 - 10.5 12/11/2014 [facility] CHEM PANEL AGAP 12.4 10.0 - 20.0 12/11/2014 [facility] CHEM PANEL BUN 18 7 - 22 12/11/2014 [facility] CHEM PANEL CO2 29 24 - 32 12/11/2014 [facility] CHEM PANEL Glucose Lvl 175 70 - 99 12/11/2014 [facility] CHEM PANEL Magnesium Lvl 1.9 1.8 - 2.4 12/10/2014 [facility] ELECTROLYTES AGAP 11.9 10.0 - 20.0 12/10/2014 [facility] ELECTROLYTES eGFR 55 12/10/2014 Result Comment: The eGFR is calculated using the [...] from the National Kidney Disease Education Program (NKDEP) which additionally recommends that when the eGFR is used in patients with extremes of body mass index for purposes of drug dosing, the eGFR should be multiplied by the estimated BMI. [facility] ELECTROLYTES Sodium Lvl 140 135 - 145 12/10/2014 [facility] ELECTROLYTES Creatinine Lvl 1.1 0.5 - 1.4 12/10/2014 [facility] ELECTROLYTES Chloride Lvl 105 95 - 109 12/10/2014 [facility] ELECTROLYTES Calcium Lvl 8.0 8.5 - 10.5 12/10/2014 [facility] ELECTROLYTES Potassium Lvl 4.9 3.5 - 5.1 12/10/2014 [facility] ELECTROLYTES CO2 28 24 - 32 12/10/2014 [facility] ELECTROLYTES Glucose Lvl 160 70 - 99 12/10/2014 [facility] ELECTROLYTES BUN 23 7 - 22 12/10/2014 [facility] HEMATOLOGY MCHC 32.3 32.0 - 36.0 12/10/2014 [facility] HEMATOLOGY MCH 26.3 27.0 - 31.0 12/10/2014 [facility] HEMATOLOGY MCV 81.3 80.0 - 98.0 12/10/2014 [facility] HEMATOLOGY Hct 34.7 36.0 - 48.0 12/10/2014 [facility] HEMATOLOGY Hgb 11.2 12.0 - 16.0 12/10/2014 [facility] HEMATOLOGY RBC 4.26 4.20 - 5.40 12/10/2014 [facility] HEMATOLOGY WBC 5.4 3.7 - 10.4 12/10/2014 [facility] HEMATOLOGY MPV 9.0 7.4 - 10.4 12/10/2014 [facility] HEMATOLOGY Platelet 215 133 - 450 12/10/2014 [facility] HEMATOLOGY RDW 14.1 11.5 - 14.5 12/10/2014 [facility] HEMATOLOGY Lymphocytes 24.0 20.0 - 40.0 12/10/2014 [facility] HEMATOLOGY Segs 62.3 45.0 - 75.0 12/10/2014 [facility] HEMATOLOGY Eosinophils # 0.1 0.0 - 0.5 12/10/2014 [facility] HEMATOLOGY Monocytes # 0.6 0.0 - 0.8 12/10/2014 [facility] HEMATOLOGY Monocytes 10.6 2.0 - 12.0 12/10/2014 [facility] HEMATOLOGY Basophils # 0.0 0.0 - 0.2 12/10/2014 [facility] HEMATOLOGY Lymphocytes # 1.3 1.0 - 5.5 12/10/2014 [facility] HEMATOLOGY Basophils 0.6 0.0 - 1.0 12/10/2014 [facility] HEMATOLOGY Eosinophils 2.5 0.0 - 4.0 12/10/2014 [facility] HEMATOLOGY Segs-Bands # 3.4 1.5 - 8.1 12/10/2014 [facility] CARDIAC ENZYMES Troponin-I <0.02 0.00 - 0.40 12/10/2014 [facility] CARDIAC ENZYMES CK MB 0.6 0.5 - 3.6 12/10/2014 [facility] CARDIAC ENZYMES Total CK 52 12 - 191 12/10/2014 [facility] CARDIAC ENZYMES CK MB Index 1.2 0.0 - 2.5 12/10/2014 [facility] CARDIAC ENZYMES Troponin-I <0.02 0.00 - 0.40 12/09/2014 [facility] CARDIAC ENZYMES CK MB 1.2 0.5 - 3.6 12/09/2014 [facility] CARDIAC ENZYMES Total CK 60 12 - 191 12/09/2014 [facility] CARDIAC ENZYMES CK MB Index 2.0 0.0 - 2.5 12/09/2014 [facility] HEMATOLOGY Monocytes 9.4 2.0 - 12.0 12/09/2014 [facility] HEMATOLOGY Eosinophils 1.7 0.0 - 4.0 12/09/2014 [facility] HEMATOLOGY Lymphocytes 28.6 20.0 - 40.0 12/09/2014 [facility] HEMATOLOGY Segs-Bands # 3.9 1.5 - 8.1 12/09/2014 [facility] HEMATOLOGY Basophils 0.4 0.0 - 1.0 12/09/2014 [facility] HEMATOLOGY Eosinophils # 0.1 0.0 - 0.5 12/09/2014 [facility] HEMATOLOGY Monocytes # 0.6 0.0 - 0.8 12/09/2014 [facility] HEMATOLOGY Lymphocytes # 1.9 1.0 - 5.5 12/09/2014 [facility] HEMATOLOGY Segs 59.9 45.0 - 75.0 12/09/2014 [facility] HEMATOLOGY WBC 6.5 3.7 - 10.4 12/09/2014 [facility] HEMATOLOGY Hct 36.5 36.0 - 48.0 12/09/2014 [facility] HEMATOLOGY Hgb 11.9 12.0 - 16.0 12/09/2014 [facility] HEMATOLOGY MCHC 32.7 32.0 - 36.0 12/09/2014 [facility] HEMATOLOGY MCH 26.7 27.0 - 31.0 12/09/2014 [facility] HEMATOLOGY MCV 81.7 80.0 - 98.0 12/09/2014 [facility] HEMATOLOGY RBC 4.47 4.20 - 5.40 12/09/2014 [facility] HEMATOLOGY Platelet 238 133 - 450 12/09/2014 [facility] HEMATOLOGY RDW 13.9 11.5 - 14.5 12/09/2014 [facility] HEMATOLOGY MPV 8.7 7.4 - 10.4 12/09/2014 [facility] HEMATOLOGY PTT 35.7 22.9 - 35.8 12/09/2014 [facility] HEMATOLOGY PT 13.3 12.0 - 14.7 12/09/2014 [facility] HEMATOLOGY INR 1.01 0.85 - 1.17 12/09/2014 [facility] CARDIAC ENZYMES Troponin-I <0.02 0.00 - 0.40 12/09/2014 [facility] CARDIAC ENZYMES CK MB 1.1 0.5 - 3.6 12/09/2014 [facility] CARDIAC ENZYMES Total CK 53 12 - 191 12/09/2014 [facility] CARDIAC ENZYMES CK MB Index 2.1 0.0 - 2.5 12/09/2014 [facility] CARDIAC ENZYMES BNP 147 <=100 pg/mL 12/09/2014 [facility] CHEM PANEL Magnesium Lvl 1.9 1.8 - 2.4 12/09/2014 [facility] LIPIDS VLDL 27 12/08/2014 [facility] LIPIDS LDL (Calculated) 51 <=99 mg/dL 12/08/2014 [facility] LIPIDS Trig 133 <=149 mg/dL 12/08/2014 [facility] LIPIDS Chol 130 <=199 mg/dL 12/08/2014 [facility] LIPIDS HDL 52 >=61 mg/dL 12/08/2014 [facility] LIPIDS CHD Risk 2.50 3.90 - 5.80 12/08/2014 [facility] HEMATOLOGY PTT 32.6 22.9 - 35.8 12/07/2014 [facility] HEMATOLOGY Platelet 228 133 - 450 12/07/2014 [facility] SPECIAL CHEMISTRY Hgb A1C 6.9 <=5.6 % 12/07/2014 [facility] CARDIAC ENZYMES BNP 329 <=100 pg/mL 12/07/2014 [facility] CHEM PANEL Albumin Lvl 3.6 3.5 - 5.0 12/07/2014 [facility] CHEM PANEL Bili Total 0.3 0.2 - 1.3 12/07/2014 [facility] CHEM PANEL Total Protein 6.8 6.4 - 8.4 12/07/2014 [facility] CHEM PANEL Alk Phos 55 39 - 136 12/07/2014 [facility] CHEM PANEL AST 17 0 - 37 12/07/2014 [facility] CHEM PANEL ALT 22 0 - 65 12/07/2014 [facility] CHEM PANEL B/C Ratio 16 6 - 25 12/07/2014 [facility] CHEM PANEL A/G Ratio 1.1 0.7 - 1.6 12/07/2014 [facility] CHEM PANEL Globulin 3.2 2.0 - 4.0 12/07/2014 [facility] CHEM PANEL Lipase Lvl 105 73 - 393 12/07/2014 [facility] HEMATOLOGY Hct 37.9 36.0 - 48.0 12/07/2014 [facility] HEMATOLOGY MPV 9.2 7.4 - 10.4 12/07/2014 [facility] HEMATOLOGY MCH 26.1 27.0 - 31.0 12/07/2014 [facility] HEMATOLOGY MCHC 31.7 32.0 - 36.0 12/07/2014 [facility] HEMATOLOGY RDW 14.4 11.5 - 14.5 12/07/2014 [facility] HEMATOLOGY MCV 82.3 80.0 - 98.0 12/07/2014 [facility] HEMATOLOGY Hgb 12.0 12.0 - 16.0 12/07/2014 [facility] HEMATOLOGY WBC 7.4 3.7 - 10.4 12/07/2014 [facility] HEMATOLOGY RBC 4.60 4.20 - 5.40 12/07/2014 [facility] HEMATOLOGY PT 13.0 12.0 - 14.7 12/07/2014 [facility] HEMATOLOGY PTT 35.1 22.9 - 35.8 12/07/2014 [facility] HEMATOLOGY INR 0.98 0.85 - 1.17 12/07/2014 [facility] HEMATOLOGY Monocytes 7.7 2.0 - 12.0 12/07/2014 [facility] HEMATOLOGY Eosinophils # 0.1 0.0 - 0.5 12/07/2014 [facility] HEMATOLOGY Basophils # 0.0 0.0 - 0.2 12/07/2014 [facility] HEMATOLOGY Monocytes # 0.6 0.0 - 0.8 12/07/2014 [facility] HEMATOLOGY Segs 68.2 45.0 - 75.0 12/07/2014 [facility] HEMATOLOGY Segs-Bands # 5.1 1.5 - 8.1 12/07/2014 [facility] HEMATOLOGY Eosinophils 1.8 0.0 - 4.0 12/07/2014 [facility] HEMATOLOGY Basophils 0.4 0.0 - 1.0 12/07/2014 [facility] HEMATOLOGY Lymphocytes 21.9 20.0 - 40.0 12/07/2014 [facility] HEMATOLOGY Lymphocytes # 1.6 1.0 - 5.5 12/07/2014 [facility] Pathology Reports No Data Provided for This Section Diagnostic Reports Report Value Date Source Chest 1view DX Clinical History: See Clinic Indication Exam: CHEST Dec 21, 2014 03:59:00 AM Comparison: 12/10/2014 exam. Findings: The lungs are clear. The heart is enlarged. There is no pneumothorax or pleural effusion. There is no acute fracture. IMPRESSION: No acute cardiopulmonary abnormality. 12/21/2014 [facility] Chest 1view DX CHEST PORTABLE ONE VIEW History: 59-year-old with abnormal chest sounds. Comparison: 12/07/2014. Findings: Cardiomegaly appears stable. Interstitial perihilar vascular congestion is mild improved. Lower lung zone linear opacities are new and possibly subsegmental atelectasis. Osseous structures are stable. IMPRESSION: Cardiomegaly with central congestion pattern. The interstitial congestion is mild improved. 12/10/2014 [facility] Chest 1view DX Clinical history: Chest pain. : 1955. Technique: Portable AP chest x-ray on Dec 07, 2014 08:59:00 AM. Heart size is mildly enlarged. Mild vascular congestion. No infiltrate. No pleural effusion. Impression: 1. Cardiomegaly and vascular congestion. 12/07/2014 [facility] Consultation Notes No Data Provided for This Section Discharge Summaries No Data Provided for This Section History and Physicals No Data Provided for This Section Vital Signs Vital Sign Value Date Comments Source Diastolic (mm Hg) 78 04/10/2018 [facility] Systolic (mm Hg) 163 04/10/2018 [facility] Heart Rate 69 04/10/2018 [facility] Weight 267.25 04/10/2018 [facility] Diastolic (mm Hg) 84 04/06/2018 [facility] Systolic (mm Hg) 132 04/06/2018 [facility] Height 64 04/06/2018 [facility] Heart Rate 70 04/06/2018 [facility] Temperature Oral (F) 97.7 F 04/06/2018 [facility] Weight 270.50 04/06/2018 [facility] Diastolic (mm Hg) 83 03/20/2018 [facility] Systolic (mm Hg) 151 03/20/2018 [facility] Height 64 03/20/2018 [facility] Heart Rate 70 03/20/2018 [facility] Weight 273.25 03/20/2018 [facility] Diastolic (mm Hg) 84 03/06/2018 [facility] Systolic (mm Hg) 142 03/06/2018 [facility] Height 64 03/06/2018 [facility] Heart Rate 53 03/06/2018 [facility] Temperature Oral (F) 97.9 F 03/06/2018 [facility] Weight 264.25 03/06/2018 [facility] Systolic (mm Hg) 101 12/12/2014 [facility] Diastolic (mm Hg) 71 12/12/2014 [facility] Respitory Rate 20 12/12/2014 [facility] Heart Rate 86 12/12/2014 [facility] Temperature Oral (F) 97.6 F 12/12/2014 [facility] Temperature Oral (F) 98.1 F 12/12/2014 [facility] Heart Rate 68 12/12/2014 [facility] Respitory Rate 18 12/12/2014 [facility] Systolic (mm Hg) 99 12/12/2014 [facility] Diastolic (mm Hg) 63 12/12/2014 [facility] Temperature Oral (F) 98.5 F 12/12/2014 [facility] Systolic (mm Hg) 113 12/12/2014 [facility] Diastolic (mm Hg) 77 12/12/2014 [facility] Heart Rate 57 12/12/2014 [facility] Respitory Rate 18 12/12/2014 [facility] BMI Calculated 43.86 12/07/2014 [facility] Height 160.02 cm 12/07/2014 [facility] Weight 112.3 12/07/2014 [facility] Height 162.56 cm 12/07/2014 [facility] Weight 114.8 12/07/2014 [facility] BMI Calculated 43.44 12/07/2014 [facility] Weight 120.455 12/07/2014 [facility] BMI Calculated 46.3 12/07/2014 [facility] Height 161.29 cm 12/07/2014 [facility] Encounters Location Location Details Encounter Type Encounter Number Reason For Visit Attending Provider ADM Date DC Date Status Source [facility] Inpatient [id number] Morgan Cunningham 12/07/2014 12/12/2014 [facility] Test results [id number] 12/26/2014 12/26/2014 [facility] Test results [id number] 12/26/2014 12/26/2014 [facility] Test results [id number] 12/26/2014 12/26/2014 [facility] Test results [id number] 12/26/2014 12/26/2014 [facility] Test results [id number] 12/26/2014 12/26/2014 [facility] Test results [id number] 12/26/2014 12/26/2014 [facility] medication interaction [id number] 01/02/2015 01/02/2015 [facility] interaction [id number] 01/02/2015 01/02/2015 [facility] medication interaction [id number] 01/02/2015 01/02/2015 [facility] medication interaction [id number] 01/02/2015 01/02/2015 [facility] medication interaction [id number] 01/02/2015 01/02/2015 [facility] [place], [place] medication interaction [id number] 01/02/2015 01/02/2015 [facility] Re: interaction of currents meds w/Amiodorone [id number] 01/02/2015 01/02/2015 [facility] Re: interaction of currents meds w/Amiodorone [id number] 01/02/2015 01/02/2015 [facility] Re: interaction of currents meds w/Amiodorone [id number] 01/02/2015 01/02/2015 [facility] Re: interaction of currents meds w/Amiodorone [id number] 01/02/2015 01/02/2015 [facility] Re: interaction of currents meds w/Amiodorone [id number] 01/02/2015 01/02/2015 [facility] Re: interaction of currents meds w/Amiodorone [id number] 01/02/2015 01/02/2015 [facility] [place] Message [id number] 01/05/2015 01/05/2015 [facility] Message [id number] 01/05/2015 01/05/2015 [facility] Message [id number] 01/05/2015 01/05/2015 [facility] Message [id number] 01/05/2015 01/05/2015 [facility] Message [id number] 01/05/2015 01/05/2015 [facility] [place] Message [id number] 01/05/2015 01/05/2015 [facility] Med refills [id number] 01/05/2015 01/05/2015 [facility] [id number] 01/05/2015 01/05/2015 [facility] refills [id number] 01/05/2015 01/05/2015 [facility]ills [id number] 01/05/2015 01/05/2015 [facility]ills [id number] 01/05/2015 01/05/2015 [facility] refills [id number] 01/05/2015 01/05/2015 [facility] Rx- Pen needles (Levemir Pen) [id number] 01/07/2015 01/07/2015 [facility]- Pen needles (Levemir Pen) [id number] 01/07/2015 01/07/2015 [facility] Pen needles (Levemir Pen) [id number] 01/07/2015 01/07/2015 [facility] Pen needles (Levemir Pen) [id number] 01/07/2015 01/07/2015 [facility] Pen needles (Levemir Pen) [id number] 01/07/2015 01/07/2015 [facility]- Pen needles (Levemir Pen) [id number] 01/07/2015 01/07/2015 [facility] Message [id number] 01/08/2015 01/08/2015 [facility] Message [id number] 01/08/2015 01/08/2015 [facility] Message [id number] 01/08/2015 01/08/2015 [facility] Message [id number] 01/08/2015 01/08/2015 [facility] Message [id number] 01/08/2015 01/08/2015 [facility] [place] Message [id number] 01/08/2015 01/08/2015 [facility] 2014 [employer] PPO [id number] 01/22/2015 01/22/2015 [facility] 2014 [employer] PPO [id number] 01/22/2015 01/22/2015 [facility] Unknown [id number] 01/27/2015 01/27/2015 [facility] Unknown [id number] 01/27/2015 01/27/2015 [facility] New Patient Complex - [id number] Patricia Vickers DO 03/06/2018 [facility] Est Patient Detailed - 11324 [id number] Patricia Vickers DO 04/06/2018 [facility] Est Patient Exp Problem - 78714 [id number] Rosa Everett MD 04/10/2018 [facility] Procedures Procedure Code Date Perfomer Comments Source Glucose Stick 77097 04/06/2018 Alee DO [facility] Psychotherapy 45 (38-52*) min - 72212 (with patient and/or family member) 08006 04/02/2018 Ronnie PABON [facility] Diagnostic evaluation with medical - [id number] 03/20/2018 Karlos BLUM [facility] Diagnostic evaluation (no medical) - 47835 [id number] 03/12/2018 Ronnie PABON [facility] Prevnar (PCV13) IM 51742 03/06/2018 Rodney FOSTER [facility] INFLUENZA VACCINE QUADRIVALENT 3 YRS PLUS IM 87437 03/06/2018 Rodney Downs Gastric bypass [id number] [facility] Hiatus hernia repair [id number] [facility] Stent placement [id number] [facility] Tubal ligation [id number] [facility] Assessment and Plan No Data Provided for This Section Plan of Care No Data Provided for This Section Social History Social History Date Source Social History ElementQualifiersDate Reported Caffeine: . no Jan 22, 2015 Tobacco Use: . Smoking Status: never smoker Jan 22, 2015 Alcohol: . no Jan 22, 2015 01/22/2015 [facility] Social History ElementQualifiersDate Reported Tobacco Use: no. Are you a: never smoker Dec 31, 2014 Alcohol: no. 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
--- OUTSIDE RECORDS SUMMARY | 2019-02-05 06:03 | XMS REPORT ---
Author Author Juan Villarreal [facility] [place] eClinicalWorks Address Unknown Phone Unavailable Care Team Providers Care Preschool Teacher'S Assistant Name Role Phone Juan Villarreal CP Unavailable Encounters Encounter Location Date 2014 [employer] P[facility] Jan 22, 2015 Unknown [facility] Jan 27, 2015 medication interaction [facility] Jan 02, 2015 Re: interaction of currents meds w/Amiodorone [facility] Jan 02, 2015 Test results [facility] Dec 26, 2014 Message [facility] Jan 05, 2015 Message [facility] Jan 07, 2015 Med ref[place] [facility] Jan 05, 2015 Rx- Pen needles (Levemir Pen) [facility] Jan 07, 2015 Problems Problem Type Condition ICD-9 Code Onset Dates Condition Status Problem Anxiety disorder NOS 300.00 Active Problem Morbid obesity 278.01 Active Problem Chronic systolic CHF (congestive heart failure) 428.22 Active Problem Coronary atherosclerosis of [place] vessel 414.01 Active Problem Cardiomyopathy NOS 425.4 Active Problem Chronic systolic heart failure 428.22 Active Problem Dyspnea 786.09 Active Problem Benign hypertension 401.1 Active Problem Atrial fibrillation 427.31 Active Medications Medication Code System Code Instructions Start Date End Date Status Dosage clopidogrel MULTUM 40501 75 mg orally once a day Active 1 tab(s) Social History Social History Element Qualifiers Date Reported Caffeine: . no Jan 22, 2015 Tobacco Use: . Smoking Status: never smoker Jan 22, 2015 Alcohol: . no Jan 22, 2015 Summary Purpose eClinicalWorks Submission
--- OUTSIDE RECORDS SUMMARY | 2019-02-05 06:03 | XMS REPORT ---
Author Author Admin, Jansen Organization [facility] Address [address] [place] [address] Phone Allergies, Adverse Reactions, Alerts Allergy Name Reaction Description Start Date Severity Status Provider SHARSTRIJoan cough Mild Active Patricia Vickers DO Conditions or Problems Problem Name Problem Code Onset Date Status Entry Date Provider Comment Standard Description Annotate ANXIETY DISORDER, UNSPECIFIED Active Marbella Trujillo LPC Anxiety state, unspecified DEPRESSIVE DISORDER, MAJOR, RECURRENT EPISODE, SEVERE Active Marbella Trujillo LPC Major depressive disorder, recurrent episode, severe degree, without mention of psychotic behavior Atrial fibrillation 427.31 Active Patricia Vickers DO Atrial fibrillation Congestive heart failure, chronic 428.0 Active Patricia Vickers DO Congestive heart failure, unspecified Coronary artery disease, S/P PTCA/stent 414.00 Active Patricia Vickers DO Coronary atherosclerosis of unspecified type of vessel, [place] or graft Diabetes mellitus type II 250.00 Active Patricia Vickers DO Diabetes mellitus without mention of complication, type II or unspecified type, not stated as uncontrolled Encounter for immunization V05.9 Active Patricia Vickers DO Need for prophylactic vaccination and inoculation against unspecified single disease Establish care or get acquainted visit V68.89 Active Patricia Vickers DO Encounters for other specified administrative purpose Hyperlipidemia 272.4 Active Patricia Vickers DO Other and unspecified hyperlipidemia Hypertension 401.1 Active Patricia Vickers DO Benign essential hypertension Leg cramps, nocturnal 729.82 Active Patricia Vickers DO Cramp of limb MORBID OBESITY Active Patricia Vickers DO Morbid obesity Restless leg syndrome 333.94 Active Patricia Vickers DO Restless legs syndrome (RLS) Medication List Medication Instructions Start Date Stop Date Generic Name NDC Status Provider Patient Instruction BUSPIRONE HCL 10 MG ORAL TABLET 1 tab By Mouth bid BUSPIRONE HCL 69665902686 Active Rosa Everett MD Active TRAZODONE HCL 100 MG ORAL TABLET 2 tablets By Mouth take at bedtime TRAZODONE HCL 54151398958 Active Rsoa Everett MD Active WELLBUTRIN XL 150 MG ORAL TABLET EXTENDED RELEASE 24 HOUR 1 tab By Mouth take at bedtime BUPROPION HCL 23211915526 Active Rosa Everett MD Active AMIODARONE HCL 200 MG ORAL TABLET one tablet By Mouth qday AMIODARONE HCL 23358724093 Active Patricia Vickers DO Active IRBESARTAN 75 MG ORAL TABLET one tablet By Mouth qday IRBESARTAN 99852760849 Active Patricia Vickers DO Active LASIX 40 MG ORAL TABLET 1 by mouth every am FUROSEMIDE 87009132249 Active Patricia Vickers DO Active LEVEMIR FLEXTOUCH 100 UNIT/ML SUBCUTANEOUS SOLUTION PEN-INJECTOR 50 units SC Twice a Day INSULIN DETEMIR 74279500313 Active Patricia Vickers DO Active METFORMIN HCL 1000 MG ORAL TABLET 1 by mouth twice a day METFORMIN HCL 55531034226 Active Patricia Vickers DO Active METOPROLOL SUCCINATE ER 50 MG ORAL TABLET EXTENDED RELEASE 24 HOUR 1 tab by mouth daily METOPROLOL SUCCINATE 97310518897 Active Patricia Vickers DO Active METOPROLOL SUCCINATE ER 50 MG ORAL TABLET EXTENDED RELEASE 24 HOUR 1 tab by mouth daily METOPROLOL SUCCINATE 27557327482 Active Patricia Vickers DO Active NOVOLOG FLEXPEN 100 UNIT/ML SUBCUTANEOUS SOLUTION PEN-INJECTOR 10 units SC Three Times a Day before meals INSULIN ASPART 20309446042 Active Patricia Vickers DO Active PLAVIX 75 MG ORAL TABLET 1 by mouth every day CLOPIDOGREL BISULFATE 02624637645 Active Patricia Vickers DO Active PRAVASTATIN SODIUM 20 MG ORAL TABLET one tablet By Mouth take at bedtime PRAVASTATIN SODIUM 87443932045 Active Patricia Vickers DO Active ROPINIROLE HCL 4 MG ORAL TABLET one tablet By Mouth take at bedtime ROPINIROLE HCL 32391680467 Active Patricia Vickers DO Active TIZANIDINE HCL 4 MG ORAL TABLET one tablet By Mouth take at bedtime TIZANIDINE HCL 67521974677 Active Patricia Vickers DO Active TRAMADOL HCL 50 MG ORAL TABLET 1-2 tablets by mouth 4 times a day as needed for pain TRAMADOL HCL 51757852750 Active Patricia Vickers DO Active Advance Directives Directive Description Start Date DISCUSSED - NO DECISION MADE Immunizations Vaccine Administration Date Value Standard Description influenza immunization (Flu Vax) has been administered given influenza virus vaccine, unspecified formulation PEDIATRIC PNEUMOCOCCAL VACCINE ([id number]) #1 given pneumococcal conjugate vaccine, 13 valent Vital Signs Date Name Value Unit Range Description blood pressure, diastolic 84 mm[Hg] BP fuller [...] as % of total hemoglobin 7.5 % blood glucose, fasting 124 mg/dL Encounters Date Encounter Provider Code Facility 12:15:29 CDT New Patient Complex - 58958 Patricia Vickers CPT-66782 [facility] Procedures Code Procedure Name Date Entry Date Standard Description CPT-03886 Diagnostic evaluation with medical - 09546 10:56:06 CDT CPT-24224 Diagnostic evaluation (no medical) - 02214 14:17:17 CDT CPT-09080 Prevnar (PCV13) IM 12:15:29 CDT CPT-06954 INFLUENZA VACCINE QUADRIVALENT 3 YRS PLUS IM 12:15:29 CDT
--- OUTSIDE RECORDS SUMMARY | 2019-02-05 06:03 | XMS REPORT ---
Author Author Admin, [place] Organization [facility] Address [address] [address] Phone Allergies, Adverse Reactions, Alerts Allergy Name Reaction Description Start Date Severity Status Provider ZESTRIL cough Mild Active Patricia Kitcheney DO Conditions or Problems Problem Name Problem Code Onset Date Status Entry Date Provider Comment Standard Description Annotate Cataract, bilateral 366.9 Active Patriciafranci Kitcheney DO Unspecified cataract Deconditioning 799.3 Active Patricia Kitcheney DO Debility, unspecified GERD 530.81 Active Patricia Alee DO Esophageal reflux Joint pain 719.40 Active Patricia Alee DO Pain in joint, site unspecified Nausea with vomiting 787.01 Active Patricia Alee DO Nausea with vomiting ANXIETY DISORDER, UNSPECIFIED Active 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 Anxiety state, unspecified DEPRESSIVE DISORDER, MAJOR, RECURRENT EPISODE, SEVERE Active Marbella Trujillo [facility] Major depressive disorder, recurrent episode, severe degree, without mention of psychotic behavior Atrial fibrillation 427.31 Active Patricia Vickers DO Atrial fibrillation Congestive heart failure, chronic 428.0 Active Patricia Vickers DO Congestive heart failure, unspecified Coronary artery disease, S/P PTCA/stent 414.00 Active Patricia Vickers DO Coronary atherosclerosis of unspecified type of vessel, [place] or graft Diabetes mellitus type II 250.00 [...] BS Three Times a Day GLUCOSE BLOOD 56931101445 Active Patricia Alee Active ACCU-CHEK SOFTCLIX LANCETS use as directed to check BS Three Times a Day LANCETS 78630019407 Active Patricia Kitcheney Active RANITIDINE HCL 150 MG ORAL TABLET 1 by mouth twice a day before meals as needed for acid reflux RANITIDINE HCL 14306159881 Active Patricia Vickers DO Active ZOFRAN ODT 4 MG ORAL TABLET DISINTEGRATING one tablet SL Three Times a Day As Needed n/v ONDANSETRON 27722280023 Active Patricia Vickers DO Active BUSPIRONE HCL 10 MG ORAL TABLET 1 tab By Mouth bid BUSPIRONE HCL 55830810539 Active Rosa Everett MD Active TRAZODONE HCL 100 MG ORAL TABLET 2 tablets By Mouth take at bedtime TRAZODONE HCL 00500386822 Active Rosa Everett MD Active WELLBUTRIN XL 150 MG ORAL TABLET EXTENDED RELEASE 24 HOUR 1 tab By Mouth take at bedtime BUPROPION HCL 50407644343 Active Rosa Everett MD Active AMIODARONE HCL 200 MG ORAL TABLET one tablet By Mouth qday AMIODARONE HCL 66767388956 Active Patricia Vickers DO Active IRBESARTAN 75 MG ORAL TABLET one tablet By Mouth qday IRBESARTAN 97467512175 Active Patricia Vickers DO Active LASIX 40 MG ORAL TABLET 1 by mouth every am FUROSEMIDE 51975779362 Active Patricia Dollhney DO Active LEVEMIR FLEXTOUCH 100 UNIT/ML SUBCUTANEOUS SOLUTION PEN-INJECTOR 50 units SC Twice a Day INSULIN DETEMIR 83794511729 Active Patricia Dollhney DO Active METFORMIN HCL 1000 MG ORAL TABLET 1 by mouth twice a day METFORMIN HCL 66435787033 Active Patricia Dollhney DO Active METOPROLOL SUCCINATE ER 50 MG ORAL TABLET EXTENDED RELEASE 24 HOUR 1 tab by mouth daily METOPROLOL SUCCINATE 40891011381 Active Patricia Dollhney DO Active METOPROLOL SUCCINATE ER 50 MG ORAL TABLET EXTENDED RELEASE 24 HOUR 1 tab by mouth daily METOPROLOL SUCCINATE 88997260052 Active Patricia Dollhney DO Active NOVOLOG FLEXPEN 100 UNIT/ML SUBCUTANEOUS SOLUTION PEN-INJECTOR 10 units SC Three Times a Day before meals INSULIN ASPART 86002013457 Active Patricia Dollhney DO Active PLAVIX 75 MG ORAL TABLET 1 by mouth every day CLOPIDOGREL BISULFATE 51575151570 Active Patricia Vickers DO Active PRAVASTATIN SODIUM 20 MG ORAL TABLET one tablet By Mouth take at bedtime PRAVASTATIN SODIUM 87899977764 Active Patricia Kitcheney DO Active ROPINIROLE HCL 4 MG ORAL TABLET one tablet By Mouth take at bedtime ROPINIROLE HCL 00338393619 Active Patricia Vickers DO Active TIZANIDINE HCL 4 MG ORAL TABLET one tablet By Mouth take at bedtime TIZANIDINE HCL 27527457234 Active Patricia Vickers DO Active TRAMADOL HCL 50 MG ORAL TABLET 1 tablets by mouth 4 times a day as needed for pain TRAMADOL HCL 92500311299 Active Patricia Vickers DO Active Advance Directives Directive Description Start Date DISCUSSED - NO DECISION MADE Immunizations Vaccine Administration Date Value Standard Description influenza immunization (Flu Vax) has been administered given influenza virus vaccine, unspecified formulation PEDIATRIC PNEUMOCOCCAL VACCINE ([id number]) #1 given pneumococcal conjugate vaccine, 13 valent Vital Signs Date Name Value Unit Range Description blood pressure, diastolic - 8462-4 78 mm[Hg] BP fuller blood pressure, systolic - 8480-6 163 mm[Hg] BP sys pulse rate E&M - 8867-4 69 /min Heart rate weight E&M - 3141-9 267.25 [lb_av] Weight Measured blood pressure, diastolic - 8462-4 84 mm[Hg] BP fuller blood pressure, systolic - 8480-6 132 mm[Hg] BP sys height E&M - 8302-2 64 [in_us] Bdy height pulse rate E&M - 8867-4 70 /min Heart rate temperature E&M 97.7 [degF] Body temperature weight E&M - 3141-9 270.50 [lb_av] Weight Measured blood pressure, diastolic - 8462-4 83 mm[Hg] BP fuller blood pressure, systolic - 8480-6 151 mm[Hg] BP sys height E&M - 8302-2 64 [in_us] Bdy height pulse rate E&M - 8867-4 70 /min Heart rate weight E&M - 3141-9 273.25 [lb_av] Weight Measured blood pressure, diastolic - 8462-4 84 mm[Hg] BP fuller blood pressure, systolic - 8480-6 142 mm[Hg] BP sys height E&M - 8302-2 64 [in_us] Bdy height pulse rate E&M - 8867-4 53 /min Heart rate temperature E&M 97.9 [degF] Body temperature weight E&M - 3141-9 264.25 [lb_av] Weight Measured Diagnostic Results Date Name Value Unit Range Description Office Visit: Acute Visit: establish care, multiple chronic issues - Chemistry hemoglobin A1C, blood, as % of total hemoglobin 7.5 % Internal Correspondence: Pre-Visit 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 - 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, name Janis Dietz Office Visit: Adult Followup: N/V, GERD, joint pain, deconditioning, cataracts - Chemistry blood glucose, fasting 136 mg/dL Encounters Date Encounter Provider Code Facility 11:42:43 TALENT COORDINATOR Est Patient Exp Problem - 34088 Rosa Everett MD CPT-44464 [facility] 11:04:59 TALENT COORDINATOR Est Patient Detailed - 81427 Patricia Alee DO CPT-32957 [facility] 12:15:29 CDT New Patient Complex - 52667 Patricia Alee DO CPT-21112 [facility] Procedures Code Procedure Name Date Entry Date Standard Description CPT-81401 Glucose Stick 11:04:59 TALENT COORDINATOR CPT-88552 Psychotherapy 45 (38-52*) min - 14317 (with patient and/or family member) 14:02:26 TALENT COORDINATOR CPT-60810 Diagnostic evaluation with medical - 54561 10:56:06 CDT CPT-88592 Diagnostic evaluation (no medical) - 91491 14:17:17 CDT CPT-29196 Prevnar (PCV13) IM 12:15:29 CDT CPT-35975 INFLUENZA VACCINE QUADRIVALENT 3 YRS PLUS IM 12:15:29 CDT
--- OUTSIDE RECORDS SUMMARY | 2019-02-05 06:03 | XMS REPORT ---
Author Author Pippa Morris eClinicalWorks Address Unknown Phone Unavailable Care Team Providers Care Boilermaking Supervisor Name Role Phone Pippa Morris Unavailable Encounters Encounter Location Date medication interaction [facility] [place] Jan 02, 2015 Re: interaction of currents meds w/Amiodorone [facility] [place] Jan 02, 2015 Med refills [facility] [place] Jan 05, 2015 Rx- Pen needles (Levemir Pen) [facility] [place] Jan 07, 2015 Test results [facility] Dec 26, 2014 Message [facility] Jan 05, 2015 Message [facility] Jan 07, 2015 Problems Problem Type Condition ICD-9 Code Onset Dates Condition Status Assessment CAD- stent 414.01 Active Problem Restless leg syndrome 333.99 Active Problem Vitamin B12 deficiency 266.2 Active Assessment DM Type 2-uncontrolled 250.02 Active Problem CHF 428.0 Active Problem Atrial fibrillation 427.31 Active Problem DM Type 2-uncontrolled 250.02 Active Problem HTN- benign 401.1 Active Problem CAD- stent 414.01 Active Problem fatigue-depression/anxiety 780.79 Active Problem Hyperlipidemia 272.4 Active Medications Medication Code System Code Instructions Start Date End Date Status Dosage metformin MULTUM 03971 1000 mg orally BID Active 1 tab(s) in the AM and 1 1/2 tab in PM Levemir FlexPen MULTUM 86684 100 units/mL subcutaneously TWICE A DAY Active 26 units isosorbide mononitrate MULTUM 46599 60 mg orally once a day (in the morning) Active 1 tab(s) Social History Social History Element Qualifiers Date Reported Tobacco Use: no. Are you a: never smoker Dec 31, 2014 Alcohol: no. 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
--- OUTSIDE RECORDS SUMMARY | 2019-02-05 06:04 | XMS REPORT ---
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.96 Active Patricia Alee DO Osteoarthrosis, unspecified whether generalized or localized, involving lower leg moderate per xray Irritable bowel syndrome 564.1 Active Patricia Alee DO Irritable bowel syndrome Screening, STD V74.5 Active Patricia Alee DO Screening examination for venereal disease Cataract, bilateral 366.9 Active Patricia Alee DO Unspecified cataract Deconditioning 799.3 Active Patricia Alee DO Debility, unspecified GERD 530.81 Active Patricia Alee DO Esophageal reflux Joint pain 719.40 Active Patricia Alee DO Pain in joint, site unspecified B/L knee xray: moderate OA Left shoulder xray: mild OA or AC joint Right Hip/pelvis xray: Normal Nausea with vomiting 787.01 Active Patricia Alee DO Nausea with vomiting ANXIETY DISORDER, UNSPECIFIED Active Marbella Trujillo LPC [...] Coronary atherosclerosis of unspecified type of vessel, wainwright or graft Diabetes mellitus type II 250.00 Active Patricia Vickers DO Diabetes mellitus without mention of complication, type II or unspecified type, not stated as uncontrolled Encounter for immunization V05.9 Active Patricia Vickers DO Need for prophylactic vaccination and inoculation against unspecified single disease Hyperlipidemia 272.4 Active Patricia Vickers DO Other and unspecified hyperlipidemia Hypertension 401.1 Active Patricia Vickers DO Benign essential hypertension Leg cramps, nocturnal 729.82 Active Patricia Vickers DO Cramp of limb MORBID OBESITY Active Patricia Vickers DO Morbid obesity Restless leg syndrome 333.94 Active Patricia Vickers DO Restless legs syndrome (RLS) Establish care or get acquainted visit ICD-V68.89 Inactive aPtricia Vickers DO Establish care or get acquainted visit V68.89 Resolved Patricia Vickers DO Encounters for other specified administrative purpose Medication List Medication Instructions Start Date Stop Date Generic Name NDC Status Provider Patient Instruction BACTRIM DS 800-160 MG ORAL TABLET 1 tab by mouth twice a day TRIMETHOPRIM-SULFAMETHOXAZOLE 44118460292 Active Patricia Vickers DO Active CITALOPRAM HYDROBROMIDE 20 MG ORAL TABLET 1 tab By Mouth take at bedtime CITALOPRAM HYDROBROMIDE 50414950442 Active Rosa Everett MD Active MUPIROCIN 2 % EXTERNAL OINTMENT apply 1/2 gram (1/2 of 1 gram tube) in each nostril Twice a Day x 5 days - repeat once/month for 3 months MUPIROCIN 33477740876 Active Patricia Vickers DO Active BD PEN NEEDLE SHORT U/F 31G X 8 MM use as directed to administer insulin INSULIN PEN NEEDLE 03464170387 Active Patricia Vickers DO Active CLOPIDOGREL BISULFATE 75 MG TABS TAKE 1 TABLET BY MOUTH ONCE DAILY CLOPIDOGREL BISULFATE 42232624014 Active Patricia Vickers DO Active METFORMIN 1000MG TAB TAKE 1 TABLET BY MOUTH TWICE DAILY METFORMIN HCL 80259210693 Active Patricia Vickers DO Active BUPROPION XL 300MG TAB TAKE 1 TABLET BY MOUTH IN THE MORNING BUPROPION HCL 50635400350 Active Rosa Everett MD Active LEVEMIR FLEXTOUCH INJ inject 50 units SC Twice a Day INSULIN DETEMIR 94288322486 Active Patricia Vickers DO Active TIZANIDINE 4MG TAB TAKE 1 TABLET BY MOUTH AT BEDTIME TIZANIDINE HCL 76012313543 Active Patricia Vickers DO Active TRAZODONE 100MG TAB TAKE 2 TABLETS BY MOUTH AT BEDTIME TRAZODONE HCL 99375717778 Active Rosa Everett MD Active OMEPRAZOLE 40 MG ORAL CAPSULE DELAYED RELEASE 1 By Mouth Every Day in AM for acid reflux OMEPRAZOLE 95791537921 Active Patricia Vickers DO Active ELIQUIS 5 MG ORAL TABLET one tablet By Mouth qday APIXABAN 35717084857 Active Patricia Vickers DO Active POTASSIUM CHLORIDE JENNIFER ER 10 MEQ ORAL TABLET EXTENDED RELEASE 1 by mouth every day POTASSIUM CHLORIDE JENNIFER CR 48587981199 Active Patricia Vickers DO Active ACCU-CHEK MACY PLUS IN VITRO STRIP use as directed to check BS Three Times a Day GLUCOSE BLOOD 45237032322 Active Patricia Vickers DO Active ACCU-CHEK SOFTCLIX LANCETS use as directed to check BS Three Times a Day LANCETS 42800984068 Active Patricia Vickers DO Active ONDANSETRON ODT 4MG TAB DISSOLVE 1 TABLET IN MOUTH THREE TIMES DAILY NEEDED FOR NAUSEA/ VOMITING ONDANSETRON 50272463603 Active Patricia Dollhney DO Active BUSPIRONE HCL 15 MG ORAL TABLET 1 tab By Mouth Twice a Day BUSPIRONE HCL 78063503288 Active Rosa Everett MD Active AMIODARONE HCL 100 MG ORAL TABLET one tablet By Mouth qday AMIODARONE HCL 00179652374 Active Patricia Dollhndori PERRY Active HUMALOG JACOB KWIKPEN 100 UNIT/ML SUBCUTANEOUS SOLUTION PEN-INJECTOR 10 units SC Three Times a Day before meals INSULIN LISPRO 56478109502 Active Patricia Dollhndori PERRY Active IRBESARTAN 75 MG ORAL TABLET one tablet By Mouth qday IRBESARTAN 83200872607 Active Patricia Dollhndori PERRY Active LASIX 40 MG ORAL TABLET 1 by mouth every am FUROSEMIDE 23328253589 Active Patricia Dollhndori PERRY Active METOPROLOL SUCCINATE ER 50 MG ORAL TABLET EXTENDED RELEASE 24 HOUR 1 tab by mouth daily METOPROLOL SUCCINATE 44202734236 Active Patricia Vickers DO Active PLAVIX 75 MG ORAL TABLET 1 by mouth every day CLOPIDOGREL BISULFATE 19727232433 Active Patricia Dollhndori PERRY Active ROPINIROLE HCL 4 MG ORAL TABLET one tablet By Mouth take at bedtime ROPINIROLE HCL 04485015698 Active Patricia Dollhndori PERRY Active SIMVASTATIN 40 MG ORAL TABLET one tablet By Mouth take at bedtime SIMVASTATIN 22355550975 Active Patricia Dollhndori PERRY Active TRAMADOL HCL 50 MG ORAL TABLET 1 tablets by mouth 4 times a day as needed for pain TRAMADOL HCL 53844253752 Active Patricia Dollhney DO Active BUSPIRONE HCL 10 MG TABS TAKE 1 TABLET BY MOUTH TWICE DAILY BUSPIRONE HCL 10 MG TABS 975289 BUSPIRONE HCL Inactive METOPROLOL SUCCINATE ER 50 MG ORAL TABLET EXTENDED RELEASE 24 HOUR 1 tab by mouth daily METOPROLOL SUCCINATE ER 50 MG ORAL TABLET EXTENDED RELEASE 24 HOUR METOPROLOL SUCCINATE Inactive RANITIDINE 150MG TAB TAKE 1 TABLET BY MOUTH TWICE DAILY BEFORE MEALS NEEDED FOR ACID REFLUX RANITIDINE HCL 63164791683 No Longer Active Patricia Vickers DO Active BUSPIRONE HCL 10 MG TABS TAKE 1 TABLET BY MOUTH TWICE DAILY BUSPIRONE HCL 30729325577 No Longer Active Rosa Everett MD Active METOPROLOL SUCCINATE ER 50 MG ORAL TABLET EXTENDED RELEASE 24 HOUR 1 tab by mouth daily METOPROLOL SUCCINATE 43082714299 No Longer Active Patricia Vickers DO Active NOVOLOG FLEXPEN 100 UNIT/ML SUBCUTANEOUS SOLUTION PEN-INJECTOR 10 units SC Three Times a Day before meals INSULIN ASPART 62598949778 No Longer Active Patricia Vickers DO Active PRAVASTATIN SODIUM 20 MG ORAL TABLET one tablet By Mouth take at bedtime PRAVASTATIN SODIUM 54838349012 No Longer Active Patricia Vickers DO Active Advance Directives Directive Description Start Date DISCUSSED - NO DECISION MADE Immunizations Vaccine Administration Date Value Standard Description influenza immunization (Flu Vax) has been administered given influenza virus vaccine, unspecified formulation PEDIATRIC PNEUMOCOCCAL VACCINE ([id number]) #1 given pneumococcal conjugate vaccine, 13 valent Vital Signs Date Name Value Unit Range Description blood pressure, diastolic 75 mm[Hg] BP fuller blood pressure, systolic 130 mm[Hg] BP sys height E&M 64 [in_us] Bdy height pulse rate E&M 53 /min Heart rate weight E&M 263 [lb_av] Weight Measured blood pressure, diastolic, second observation 75 mm[Hg] BP fuller blood pressure, diastolic 75 mm[Hg] BP fuller blood pressure, systolic, second observation 130 mm[Hg] BP sys blood pressure, systolic 130 mm[Hg] BP sys height E&M 64 [in_us] Bdy height pulse rate E&M 53 /min Heart rate temperature E&M 98.3 [degF] Body temperature weight E&M 263 [lb_av] Weight Measured blood pressure, diastolic 82 mm[Hg] BP fuller blood pressure, systolic 160 mm[Hg] BP sys height E&M 64 [in_us] Bdy height pulse rate E&M 60 /min Heart rate temperature E&M 98.0 [degF] Body temperature weight E&M 260.13 [lb_av] Weight Measured blood pressure, diastolic 78 mm[Hg] BP fuller blood pressure, systolic 138 mm[Hg] BP sys height E&M 64 [in_us] Bdy height pulse rate E&M 55 /min Heart rate weight E&M 271 [lb_av] Weight Measured blood pressure, diastolic 78 mm[Hg] BP fuller blood pressure, systolic 138 mm[Hg] BP sys height E&M 64 [in_us] Bdy height pulse rate E&M 55 /min Heart rate temperature E&M 98.7 [degF] Body temperature weight E&M 271.38 [lb_av] Weight Measured blood pressure, diastolic 76 mm[Hg] BP fuller blood pressure, systolic 170 mm[Hg] BP sys height E&M 64 [in_us] Bdy height pulse rate E&M 70 /min Heart rate weight E&M 273 [lb_av] Weight Measured blood pressure, diastolic 80 mm[Hg] BP fuller blood pressure, systolic 189 mm[Hg] BP sys height E&M 64 [in_us] Bdy height pulse rate E&M 70 /min Heart rate temperature E&M 98 [degF] Body temperature weight E&M 280.20 [lb_av] Weight Measured blood pressure, diastolic 72 mm[Hg] BP fuller blood pressure, systolic 131 mm[Hg] BP sys height E&M 64 [in_us] Bdy height pulse rate E&M 59 /min Heart rate respiratory rate E&M 22 /min Resp rate temperature E&M 97.7 [degF] Body temperature weight E&M 274.20 [lb_av] Weight Measured blood pressure, diastolic 78 mm[Hg] BP fuller blood pressure, systolic 126 mm[Hg] BP sys height E&M 64 [in_us] Bdy height pulse rate E&M 64 /min Heart rate weight E&M 261.38 [lb_av] Weight Measured blood pressure, diastolic 78 mm[Hg] BP fuller [...] Results Date Name Value Unit Range Description Lab Report: CBC With Differential/Platelet, Comp. Metabolic Panel (14), ... - Chemistry thyroid stimulating hormone, serum 1.460 u[iU]/mL 0.450-4.500 Lab Report: Stool Culture, Result, Stool Culture, Result, Stool Culture, ... - Lab Campybolacter culture, stool or rectal swab Final report Lab Report: CBC With Differential/Platelet, Comp. Metabolic Panel (14), ... - Chemistry very low density lipoproteins 19 mg/dL 5-40 hepatitis B surface antigen Negative Negative chloride, serum 103 mmol/L 96-106 urea nitrogen, blood 18 mg/dL 8-27 Lab Report: CBC With Differential/Platelet, Comp. Metabolic Panel (14), ... - Hematology mean corpuscular hemoglobin concentration, RBC 31.5 G/DL % 31.5-35.7 erythrocyte (RBC) count 4.19 X10E6/UL 10*6/mm3 3.77-5.28 Lab Report: CBC With Differential/Platelet, Comp. Metabolic Panel (14), ... - Serology hepatitis C antibody, serum <0.1 0.0-0.9 Lab Report: CBC With Differential/Platelet, Comp. Metabolic Panel (14), ... - Chemistry Absolute Neutrophils 3.8 X10E3/UL 10*3/uL 1.4-7.0 LDL cholesterol, serum 109 mg/dL 0-99 Lab Report: Stool Culture, Result, Stool Culture, Result, Stool Culture, ... - Microbiology white blood cells in stool Final report None Seen Lab Report: CBC With Differential/Platelet, Comp. Metabolic Panel (14), ... - Chemistry urea nitrogen/creatinine ratio, serum 19 - Internal Correspondence: Pre-Visit Planning - CC care felt hat steamer #1, name Rosa Maria Lab Report: CBC With Differential/Platelet, Comp. Metabolic Panel (14), ... - Hematology mean corpuscular volume, RBC 84 fL 79-97 Lab Report: CBC With Differential/Platelet, Comp. Metabolic Panel (14), ... - Chemistry HDL cholesterol, serum 71 mg/dL >39 Lab Report: CBC With Differential/Platelet, Comp. Metabolic Panel (14), ... - Hematology monocytes as percent of blood leukocytes 9 % Not Estab. Lab Report: CBC With Differential/Platelet, Comp. Metabolic Panel (14), ... - Chemistry creatinine, serum 0.93 mg/dL 0.57-1.00 albumin/globulin ratio, serum 1.8 1.2-2.2 cholesterol, serum 199 mg/dL 191-141 2374/03/28 bilirubin, serum, total <0.2 mg/dL mg/dL 0.0-1.2 Lab Report: CBC With Differential/Platelet, Comp. Metabolic Panel (14), ... - Hematology Eosinophil Absolute Count 0.1 X10E3/UL 10*3/uL 0.0-0.4 Lab Report: Stool Culture, Result, Stool Culture, Result, Stool Culture, ... - Microbiology Helicobacter pylori antigen, stool Negative Negative Lab Report: Ct, Ng, Trich vag by TAMARA - Lab chlamydia DNA probe Negative Negative Lab Report: CBC With Differential/Platelet, Comp. Metabolic Panel (14), ... - Chemistry aspartate aminotransferase (SGOT), serum 13 U/L 0-40 Lab Report: CBC With Differential/Platelet, Comp. Metabolic Panel (14), ... - Hematology red blood cell distribution width 13.9 % 12.3-15.4 leukocyte count, blood 7.1 X10E3/UL 10*3/mm3 3.4-10.8 Lab Report: CBC With Differential/Platelet, Comp. Metabolic Panel (14), ... - Chemistry potassium, serum 4.5 mmol/L 3.5-5.2 immature granulocytes, percentage of total cells, blood 0 % Not Estab. albumin, serum 4.2 g/dL 3.6-4.8 Lab Report: CBC With Differential/Platelet, Comp. Metabolic Panel (14), ... - Hematology lymphocyte count, blood, automated 2.5 X10E3/UL 10*3/mm3 0.7-3.1 Lab Report: Ct, Ng, Trich vag by TAMARA - Microbiology Neisseria gonorrhoeae DNA probe Negative Negative Lab Report: CBC With Differential/Platelet, Comp. Metabolic Panel (14), ... - Hematology hematocrit, blood 35.2 % 34.0-46.6 Lab Report: CBC With Differential/Platelet, Comp. Metabolic Panel (14), ... - Chemistry sodium, serum 144 mmol/L 134-144 Lab Report: CBC With Differential/Platelet, Comp. Metabolic Panel (14), ... - Hematology neutrophils as percent of blood leukocytes 54 % Not Estab. Lab Report: Stool Culture, Result, Stool Culture, Result, Stool Culture, ... - Toxicology culture, salmonella and shigella, stool Final report Lab Report: CBC With Differential/Platelet, Comp. Metabolic Panel (14), ... - Hematology basophils as percent of blood leukocytes 0 % Not Estab. Lab Report: CBC With Differential/Platelet, Comp. Metabolic Panel (14), ... - Serology rapid plasma reagin antibody, serum Non Reactive Non Reactive Lab Report: CBC With Differential/Platelet, Comp. Metabolic Panel (14), ... - Chemistry carbon dioxide, venous blood 25 mmol/L 20-29 triglyceride, serum, fasting 97 mg/dL 0-149 calcium, serum 8.8 mg/dL 8.7-10.3 alanine aminotransferase (SGPT), serum 12 U/L 0-32 Office Visit: Adult Followup: DMII and other chronic issues - Chemistry blood glucose, fasting 174 mg/dL Lab Report: CBC With Differential/Platelet, Comp. Metabolic Panel (14), ... - Hematology mean corpuscular hemoglobin, RBC 26.5 pg 26.6-33.0 Lab Report: CBC With Differential/Platelet, Comp. Metabolic Panel (14), ... - Chemistry protein, total, serum 6.5 g/dL 6.0-8.5 alkaline phosphatase, serum 64 U/L 39-117 Lab Report: CBC With Differential/Platelet, Comp. Metabolic Panel (14), ... - Hematology hemoglobin, blood 11.1 g/dL 11.1-15.9 lymphocytes as percent of blood leukocytes 35 % Not Estab. Office Visit: Adult Followup: DMII, HTN, HLD, GERD, skin issues (MRSA) - Chemistry hemoglobin A1C, blood, as % of total hemoglobin 6.8 % Lab Report: CBC With Differential/Platelet, Comp. Metabolic Panel (14), ... - Genetics/fertility eGFR if 76 mL/min/1.73m2 >59 Lab Report: CBC With Differential/Platelet, Comp. Metabolic Panel (14), ... - Hematology basophil count, absolute 0.0 x10E3/uL 0.0-0.2 Lab Report: CBC With Differential/Platelet, Comp. Metabolic Panel (14), ... - Chemistry globulin, serum 2.3 1.5-4.5 Estimated Glomerular Filtration Rate (calc) 66 mL/min/1.73m2 >59 Lab Report: CBC With Differential/Platelet, Comp. Metabolic Panel (14), ... - Serology hepatitis B surface antibody Non Reactive Lab Report: Stool Culture, Result, Stool Culture, Result, Stool Culture, ... - Toxicology Shiga Toxin EIA Negative Negative Lab Report: CBC With Differential/Platelet, Comp. Metabolic Panel (14), ... - Hematology eosinophils as percent of blood leukocytes 2 % Not Estab. Office Visit: Adult Followup: DMII, HTN, HLD, GERD, skin issues (MRSA) - Chemistry blood glucose, random 185 mg/dL Lab Report: CBC With Differential/Platelet, Comp. Metabolic Panel (14), ... - Hematology monocyte count, blood, automated 0.6 X10E3/UL 10*3/uL 0.1-0.9 platelet count 270 X10E3/UL 10*3/mm3 150-379 Encounters Date Encounter Provider Code Facility 13:41:28 CDT Est Patient Detailed - [id number] Rosa Everett MD CPT-74563 [facility] 12:10:04 CDT Est Patient Detailed - 29796 Patricia Alee DO CPT-34482 [facility] 10:04:58 CDT Est Patient Detailed - 26467 Patricia Alee DO CPT-90949 [facility] 12:55:34 CDT Est Patient Exp Problem - 66822 Rosa Everett MD CPT-05905 [facility] 12:08:48 CDT Est Patient Detailed - 76349 Patricia Alee DO CPT-32973 [facility] 13:11:46 CDT Est Patient Exp Problem - 14716 Rosa Everett MD CPT-75190 [facility] 11:49:08 CDT Est Patient Comprehensive-[id number] Patricia Alee DO CPT-07378 [facility] 13:08:45 [employer] Est Patient Detailed - 67314 Patricia Alee DO CPT-77522 [facility] 15:14:46 [employer] Est Patient Exp Problem - 97333 Rosa Everett MD CPT-20177 [facility] 11:42:43 [employer] 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 Est Patient Exp Problem - 48545 Rosa Everett MD CPT-24569 [facility] 11:04:59 [employer] Est Patient Detailed - 40868 Patricia Alee DO CPT-98285 [facility] 12:15:29 CDT New Patient Complex - 12016 Patricia Vickers DO CPT-75491 [facility] Procedures Code Procedure Name Date Entry Date Standard Description CPT-60476 Psychotherapy 45 (38-52*) min - 23567 (with patient and/or family member) 10:55:38 CDT CPT-15338 Psychotherapy 45 (38-52*) min - 54241 (with patient and/or family member) 13:14:32 CDT CPT-77620 Psychotherapy 45 (38-52*) min - 48071 (with patient and/or family member) 15:06:29 [employer] CPT-75092 Psychotherapy 45 (38-52*) min - 18675 (with patient and/or family member) 16:37:24 [employer] CPT-51183 Glucose Stick 11:04:59 [employer] CPT-35042 Psychotherapy 45 (38-52*) min - 34270 (with patient and/or family member) 14:02:26 [employer] CPT-25345 Diagnostic evaluation with medical - 28185 10:56:06 CDT CPT-69638 Diagnostic evaluation (no medical) - 29585 14:17:17 CDT CPT-54514 Prevnar (PCV13) IM 12:15:29 CDT CPT-43770 INFLUENZA VACCINE QUADRIVALENT 3 YRS PLUS IM 12:15:29 CDT
[2019-02-05 10:35] VITALS: BP 144/87
== END | disposition home or self-care (01) ==
LOC: OR 05:53
PROVIDERS: ATTEND Internal Medicine Gastroenterology
DX: Z12.11 Encounter for screening for malignant neoplasm of colon (principal); D12.2 Benign neoplasm of ascending colon; D12.3 Benign neoplasm of transverse colon; K29.70 Gastritis, unspecified, without bleeding; K21.9 Gastro-esophageal reflux disease without esophagitis; K44.9 Diaphragmatic hernia without obstruction or gangrene; K64.8 Other hemorrhoids; R19.7 Diarrhea, unspecified; R63.4 Abnormal weight loss; I25.2 Old myocardial infarction; E11.9 Type 2 diabetes mellitus without complications; I48.91 Unspecified atrial fibrillation; I11.0 Hypertensive heart disease with heart failure; I50.9 Heart failure, unspecified; E78.5 Hyperlipidemia, unspecified; I25.10 Atherosclerotic heart disease of native coronary artery without angina pectoris; I10 Essential (primary) hypertension; E66.01 Morbid (severe) obesity due to excess calories; I44.0 Atrioventricular block, first degree; R00.1 Bradycardia, unspecified; M19.90 Unspecified osteoarthritis, unspecified site; F41.9 Anxiety disorder, unspecified; F32.9 Major depressive disorder, single episode, unspecified; Z88.8 Allergy status to other drugs, medicaments and biological substances; Z01.810 Encounter for preprocedural cardiovascular examination; Z01.812 Encounter for preprocedural laboratory examination; Z79.02 Long term (current) use of antithrombotics/antiplatelets; Z79.84 Long term (current) use of oral hypoglycemic drugs; Z79.82 Long term (current) use of aspirin; Z79.4 Long term (current) use of insulin; Z68.42 Body mass index [BMI] 45.0-49.9, adult; Z90.3 Acquired absence of stomach [part of]; Z86.19 Personal history of other infectious and parasitic diseases; Z95.5 Presence of coronary angioplasty implant and graft
CPT/HCPCS: 36415 ×2; 43239; 45380; 45381; 45385; 82948; 85025; 88305; 93005; J2001; J2250; J2704; 45384; 88304